=== PATIENT | female | born 1970 | race Hispanic/Latino ===

== ENCOUNTER 2024-08-25 02:47 | Inpatient (IN) | payer SELFPAY ==
--- OUTSIDE RECORDS SUMMARY | 2024-08-25 02:52 | XMS REPORT | Continuity of Care Document ---
Author Name Unknown Address [address] [facility] [address] [place] [address] Organization [facility] [place] Address [address] [facility] [address] [place] [address] Care Team Providers Care Level Vial Inspector And Tester Name Role Phone Mackenzie Velarde Primary Care Physician [phone] Doctor Unassigned, Bylas Attending Clinician U navailable Mackenzie Velarde Attending Clinician ROBBI KOTHARI Attending Clinician Unavailenmanuel e ROBBI KOTHARI Attending Clinician Unavailabl e Doctor Unassigned, Bylas Attending Clinician U navailable RADIOLOGY Attending Clinician Unavailable Radiology Attending Clinician Unavailable Kevin Enrique Attending Clinician Unavailab Jeremy Ugalde Attending Clinician Unavaila parrish [facility] Admitting Clinicia n Unavailable MACKENZIE VELARDE Admitting Clinician Unavai lable Payers Payer Name Policy Type Policy Number Effective Date Expirati on Date Source Allergies, Adverse Reactions, Alerts Allergy Name Allergy Type Status Severity Reaction(s) Onset Date Inactive Date Treating Clinician Comments Source No Known Allergie s DA Active U 2013-05 00:00: 00 [facility] NO KNOWN ALLERGIE S Drug Class Active [facility] Social History Social Habit Start Date Stop Date Quantity Comments Source Sexual orientation U [facility] Sex assigned at 1970 00:00:00 1970 00:00:00 [facility] Smoking Status Start Date Stop Date Source Tobacco smoking consumption unknown [facility] Medications Ordered Medication Name Filled Medication Name Start Date Stop Date Current Medication? Ordering Clinician Indication Dosage Frequency Signature (SIG) Comments Components Source losartan 100 mg-hydrochl orothiazide 25 mg tablet - 00:00: 00 Yes mg Lucio Rodriguez metformin 1,000 mg tablet -24 00:00: 00 Yes mg Lucio Rodriguez duloxetine 30 mg capsule,del ayed release 06-01 00:00: 00 Yes 1mg Lucio Rodriguez losartan 100 mg-hydrochl orothiazide 25 mg tablet 2023-05 2-20 00:00: 00 Yes mg Lucio Rodriguez metformin 1,000 mg tablet 2023-05 2-20 00:00: 00 Yes mg Lucio Rodriguez diclofenac 1 % topical gel 2023-05 2- 00:00: 00 Yes 2% Lucio Rodriguez meloxicam 7.5 mg tablet 2023-05 2- 00:00: 00 Yes 1mg Lucio Rodriguez losartan 100 mg-hydrochl orothiazide 25 mg tablet 2023-05 1-15 00:00: 00 Yes mg Lucio Rodriguez metformin 1,000 mg tablet 2023-05 1-13 00:00: 00 Yes mg Lucio Rodriguez metformin 1,000 mg tablet 2023-05 0-08 00:00: 00 Yes mg Lucio Rodriguez Bromfed DM 2 mg-30 mg-10 mg/5 mL oral syrup - 00:00: 00 Yes 20mg/5 mL Lucio Rodriguez Victoza 3-Binu 0.6 mg/0.1 mL (18 mg/3 mL) subcutaneou s pen injector - 00:00: 00 Yes 1(18 mg/3 mL) Lucio Rodriguez Victoza 3-Binu 0.6 mg/0.1 mL (18 mg/3 mL) subcutaneou s pen injector 12-25 00:00: 00 Yes (18 mg/3 mL) Lucio Rodriguez Celebrex 200 mg capsule 12-25 00:00: 00 Yes 1mg Lucio Rodriguez metformin 1,000 mg tablet 11-01 00:00: 00 Yes mg Lucio Rodriguez losartan 100 mg-hydrochl orothiazide 25 mg tablet 10-09 00:00: 00 Yes mg Lucio Rodriguez Victoza 3-Binu 0.6 mg/0.1 mL (18 mg/3 mL) subcutaneou s pen injector 10-09 00:00: 00 Yes (18 mg/3 mL) Lucio Rodriguez methylpredn isolone 4 mg tablets in a dose pack 09-05 00:00: 00 Yes mg Lucio Rodriguez losartan 100 mg-hydrochl orothiazide 25 mg tablet 09-05 00:00: 00 Yes mg Lucio Rodriguez Bromfed DM 2 mg-30 mg-10 mg/5 mL oral syrup 08-10 00:00: 00 Yes 5mg/5 mL Lucio Rodriguez losartan 100 mg-hydrochl orothiazide 25 mg tablet 08-02 00:00: 00 Yes mg Lucio Rodriguez metformin 1,000 mg tablet 07-06 00:00: 00 Yes mg Lucio Rodriguez TAKE 1 TABLET TWICE DAILY NEEDED. 06-01 00:00: 00 09-20 00:00 :00 No 75 Lucio Rodriguez TAKE DAILY DIRECTED 06-01 00:00: 00 09-20 00:00 :00 No 4 Lucio Rodriguez methocarbam ol 750 mg tablet 06-01 00:00: 00 09-05 00:00 :00 No 750mg Lucio Rodriguez INJECT 0.25 WEEKLY 2022-05 00:00: 00 09-20 00:00 :00 No 23 Lucio Rodriguez 0.6 MG ONCE DAILY FOR 1 WEEK, THEN INCREASE TO 1.2 MG ONCE DAILY 2022-05 00:00: 00 09-20 00:00 :00 No 183 Lucio Rodriguez TAKE ONE TABLET TWICE A DAY 2022-05 00:00: 00 09-20 00:00 :00 No 1 Lucio Rodriguez TAKE ONE (1) TABLET(S) BY MOUTH TWICE A DAY. 2022-05 2-13 00:00: 00 09-20 00:00 :00 No 1000 Lucio Rodriguez INJECT 0.5 ML SUBCUTANEOU SLY WEEKLY. 2022-05 0-04 00:00: 00 09-20 00:00 :00 No [id number] Lucio Rodriguez TAKE ONE (1) TABLET(S) BY MOUTH TWICE A DAY. 2022-05 0-03 00:00: 00 09-20 00:00 :00 No 1000 Lucio Rodriguez TAKE ONE (1) TABLET(S) BY MOUTH DAILY. 2022-05 0-03 00:00: 00 09-20 00:00 :00 No Lucio Rodriguez TAKE ONE (1) TABLET(S) BY MOUTH TWICE A DAY. 9-29 00:00: 00 09-20 00:00 :00 No 1000 Lucio Rodriguez TAKE ONE (1) TABLET(S) BY MOUTH DAILY. 9- 00:00: 00 09-20 00:00 :00 [place] [id number] Lucio Rodriguez TAKE 1 TABLET DAILY. 8-02 00:00: 00 09-20 00:00 :00 [place] [id number] Lucio Rodriguez TAKE ONE (1) TABLET(S) BY MOUTH TWICE A DAY. 6-14 00:00: 00 09-20 00:00 :00 No 1000 Lucio Rodriguez TAKE ONE TABLET TWICE A DAY 6-14 00:00: 00 09-20 00:00 :00 No 1 Lucio Rich Michael BROMPHEN/PS EUDOEPHEDRI NE HCL/DEXTRO METHORPHAN HBR 30-2-10 MG/5ML SYRP 5-12 00:00: 00 09-20 00:00 :00 No Lucio Rich Michael take one tab once daily - 00:00: 00 09-20 00:00 :00 No 25 Lucio Rich Rodriguez take one tab once daily 09-08 00:00: 00 09-20 00:00 :00 No 100 Lucio Rich Rodriguez TAKE 1 TABLET DAILY. 2023-0 5-03 00:00: 00 09-20 00:00 :00 [place] [id number] Lucio Rodriguez TAKE ONE (1) TABLET(S) BY MOUTH TWICE A DAY. 4-27 00:00: 00 09-20 00:00 :00 No 1000 Lucio Rodriguez TAKE ONE (1) TABLET(S) BY MOUTH TWICE A DAY. 3-29 00:00: 00 09-20 00:00 :00 No 1000 Lucio Rodriguez TAKE ONE TABLET TWICE A DAY 3-03 00:00: 00 09-20 00:00 :00 No 1 Lucio Rodriguez TAKE 1 TABLET AT BEDTIME. 3- 00:00: 00 09-20 00:00 :00 No 40 Lucio Rodriguez TAKE 1 TABLET TWICE DAILY. 3- 00:00: 00 09-20 00:00 :00 No 1000 Lucio Rich Rodriguez 1 tablet bid 3- 00:00: 00 09-20 00:00 :00 No 1000 Lucio Rich Rodriguez APPLY TO AFFECTED AREAS DIRECTED. 3- 00:00: 00 09-20 00:00 :00 No 5 Lucio Rodriguez TAKE 1 TABLET BID NEEDED 2-02 00:00: 00 09-20 00:00 :00 No 600 Ulcio Rich Rodriguez TAKE 2 TABLETS ON DAY 1 THEN TAKE 1 TABLET A DAY FOR 4 DAYS. 1- 00:00: 00 09-20 00:00 :00 No 250 Lucio Rodriguez TAKE 1 CAPSULE 3 TIMES DAILY NEEDED. 1-23 00:00: 00 09-20 00:00 :00 No 100 Lucio Rich Michael IBUPROFEN 800 MG TABS 1- 00:00: 00 09-20 00:00 :00 No Lucio Rich Michael TAKE ONE (1) TABLET(S) BY MOUTH EVERY TWELVE HOURS NEEDED FOR MUSCLE SPASMS. 1- 00:00: 00 09-20 00:00 :00 Sushila Rodriguez INHALE TWO (2) PUFFS BY MOUTH EVERY 4-6 HOURSAS NEEDED FOR COUGH, WHEEZING OR SHORTNESS OF BREATH. WAIT AT LEAST 60 SECONDS BETWEEN PUFFS. 05-15 00:00: 00 09-20 00:00 :00 Sushila Rodriguez PREDNISONE 20 MG TABS 05-15 00:00: 00 09-20 00:00 :00 Sushila Rodriguez INHALE TWO (2) PUFFS BY MOUTH EVERY 12 HOURS. 05-15 00:00: 00 09-20 00:00 :00 Sushila Rodriguez TAKE ONE (1) TABLET(S) BY MOUTH ONCE A DAY FOR 30 DAYS. 05-09 00:00: 00 09-20 00:00 :00 Sushila 5 Lucio Rodriguez TAKE ONE (1) TABLET(S) BY MOUTH ONCE A DAY FOR 30 DAYS. 2021-05 00:00: 00 09-20 00:00 :00 Sushila Rodriguez LOSARTAN POTASSIUM 100 MG TABS 2021-05 00:00: 00 09-20 00:00 :00 Sushila Rodriguez HYDROCHLORO THIAZIDE 25 MG TABS 2021-05 00:00: 00 09-20 00:00 :00 Sushila Rodriguez METFORMIN HYDROCHLORI DE 500 MG TABS 2021-05 00:00: 00 09-20 00:00 :00 Sushila Rodriguez TAKE TWO (2) TABLET(S) BY MOUTH TWICE A DAY. 2021-05 00:00: 00 09-20 00:00 :00 Sushila Rodriguez OMEPRAZOLE 20 MG CPDR 01-28 00:00: 00 09-20 00:00 :00 Sushila Rodriguez 1 po qd 01-20 00:00: 00 09-20 00:00 :00 Sushila Rodriguez TAKE 4 CAPSULES TWICE DAILY. 01-20 00:00: 00 09-20 00:00 :00 Sushila Rodriguez 2 po bid 01-20 00:00: 00 09-20 00:00 :00 No 500 Lucio Rodriguez DICLOFENAC SODIUM 1 % GEL 8-11 00:00: 00 09-20 00:00 :00 No Lucio Rich Rodriguez METOCLOPRAM JAMIE HCL 5 MG TABS 12-02 00:00: 00 09-20 00:00 :00 No Lucio Rich Rodriguez RYBELSUS 3 MG TABS 12-02 00:00: 00 09-20 00:00 :00 Sushila Lucio Rich Rodriguez TAKE ONE (1) TABLET(S) BY MOUTH TWICE A DAY FOR SEVEN DAYS. 12-02 00:00: 00 09-20 00:00 :00 No Lucio Rich Rodriguez CIPROFLOXAC IN HYDROCHLORI DE 250 MG TABS 07-18 00:00: 00 09-20 00:00 :00 No Lucio Rich Michael APPLY TO LEFT GREAT TOE TWICE A DAY. 3 00:00: 00 09-20 00:00 :00 No Lucio Rich Michael Vital Signs Vital Name Observation Time Observation Value Comments S chip BP Systolic 2024-06-01 13:29:00 138 mm[Hg] Step hen F Michael BP Diastolic 2024-06-01 13:29:00 88 mm[Hg] Jeronimo phen F Michael Weight Measured 2024-06-01 13:29:00 183.20 pounds Lucio Rodriguez Height Measured 2024-06-01 13:29:00 65.20 inches Lucio Rodriguez Body Temperature 2024-06-01 13:29:00 97.30 degrees Lucio Rodriguez Heart Rate 2024-06-01 13:29:00 86.00 /min Mary en F Michael Respiratory Rate 2024-06-01 13:29:00 18.00 /min Lucio Rodriguez BP Systolic 2024-04-10 09:48:00 163 mm[Hg] Step hen F Michael BP Diastolic 2024-04-10 09:48:00 98 mm[Hg] Jeronimo phen F Michael Weight Measured 2024-04-10 09:48:00 180.20 pounds Lucio Rodriguez Height Measured 2024-04-10 09:48:00 65.00 inches Lucio Rodriguez Body Temperature 2024-04-10 09:48:00 Lucio F Michael Heart Rate 2024-04-10 09:48:00 84.00 /min Mary en F Michael Respiratory Rate 2024-04-10 09:48:00 16.00 /min Lucio F Michael BP Systolic 2024-01-04 08:57:00 166 mm[Hg] Step hen F Michael BP Diastolic 2024-01-04 08:57:00 92 mm[Hg] Jeronimo phen F Michael Weight Measured 2024-01-04 08:57:00 183.00 pounds Lucio F Michael Height Measured 2024-01-04 08:57:00 65.00 inches Lucio F Michael Body Temperature 2024-01-04 08:57:00 98.20 degrees Lucio F Michael Heart Rate 2024-01-04 08:57:00 100.00 /min Step hen F Michael Respiratory Rate 2024-01-04 08:57:00 18.00 /min Lucio F Michael BP Systolic 2023-12-26 09:40:00 146 mm[Hg] Step hen F Michael BP Diastolic 2023-12-26 09:40:00 93 mm[Hg] Jeronimo phen F Mihcael Weight Measured 2023-12-26 09:40:00 185.60 pounds Lucio F Michael Height Measured 2023-12-26 09:40:00 65.00 inches Lucio F Michael Body Temperature 2023-12-26 09:40:00 97.90 degrees Lucio F Michael Heart Rate 2023-12-26 09:40:00 83.00 /min Mary en F Michael Respiratory Rate 2023-12-26 09:40:00 17.00 /min Lucio F Micahel BP Systolic 2023-10-10 15:09:00 141 mm[Hg] Step hen F Michael BP Diastolic 2023-10-10 15:09:00 93 mm[Hg] Jeronimo phen F Michael Weight Measured 2023-10-10 15:09:00 189.80 pounds Lucio F Michael Height Measured 2023-10-10 15:09:00 65.00 inches Lucio F Michael Body Temperature 2023-10-10 15:09:00 98.20 degrees Lucio F Michael Heart Rate 2023-10-10 15:09:00 98.00 /min Mary en F Michael Respiratory Rate 2023-10-10 15:09:00 18.00 /min Lucio F Michael BP Systolic 2023-09-06 09:53:00 137 mm[Hg] Step hen F Michael BP Diastolic 2023-09-06 09:53:00 83 mm[Hg] Jeronimo phen F Michael Weight Measured 2023-09-06 09:53:00 186.40 pounds Lucio F Michael Height Measured 2023-09-06 09:53:00 65.00 inches Lucio F Michael Body Temperature 2023-09-06 09:53:00 98.00 degrees Lucio F Michael Heart Rate 2023-09-06 09:53:00 81.00 /min Mary en F Michael Respiratory Rate 2023-09-06 09:53:00 19.00 /min Lucio F Michael BP Systolic 2023-08-11 09:05:00 138 mm[Hg] Step hen F Michael BP Diastolic 2023-08-11 09:05:00 91 mm[Hg] Jeronimo phen F Michael Weight Measured 2023-08-11 09:05:00 182.80 pounds Lucio F Michael Height Measured 2023-08-11 09:05:00 65.00 inches Lucio F Michael Body Temperature 2023-08-11 09:05:00 98.30 degrees Lucio F Michael Heart Rate 2023-08-11 09:05:00 98.00 /min Mary en F Michael Respiratory Rate 2023-08-11 09:05:00 18.00 /min Lucio F Michael BP Systolic 2023-06-22 10:23:00 161 mm[Hg] Step hen F Michael BP Diastolic 2023-06-22 10:23:00 96 mm[Hg] Jeronimo phen F Michael Weight Measured 2023-06-22 10:23:00 186.20 pounds Lucio F Michael Height Measured 2023-06-22 10:23:00 65.00 inches Lucio F Michael Body Temperature 2023-06-22 10:23:00 98.00 degrees Lucio F Michael Heart Rate 2023-06-22 10:23:00 80.00 /min Mary en F Michael Respiratory Rate 2023-06-22 10:23:00 17.00 /min Lucio F Michael BP Systolic 2023-06-22 09:48:00 161 mm[Hg] Step hen F Michael BP Diastolic 2023-06-22 09:48:00 96 mm[Hg] Jeronimo phen F Michael Weight Measured 2023-06-22 09:48:00 186.20 pounds Lucio F Michael Height Measured 2023-06-22 09:48:00 65.00 inches Lucio F Michael Body Temperature 2023-06-22 09:48:00 98.00 degrees Lucio F Michael Heart Rate 2023-06-22 09:48:00 80.00 /min Mary en F Michael Respiratory Rate 2023-06-22 09:48:00 17.00 /min Lucio F Michael BP Systolic 2023-06-07 15:42:00 124 mm[Hg] Step hen F Michael BP Diastolic 2023-06-07 15:42:00 87 mm[Hg] Jeronimo phen F Michael Weight Measured 2023-06-07 15:42:00 189.80 pounds Lucio F Michael Height Measured 2023-06-07 15:42:00 65.00 inches Lucio F Michael Body Temperature 2023-06-07 15:42:00 98.20 degrees Lucio F Michael Heart Rate 2023-06-07 15:42:00 81.00 /min Mary en F Michael Respiratory Rate 2023-06-07 15:42:00 19.00 /min Lucio F Michael BP Systolic 2023-06-01 15:44:00 132 mm[Hg] Step hen F Michael BP Diastolic 2023-06-01 15:44:00 89 mm[Hg] Jeronimo phen F Michael Weight Measured 2023-06-01 15:44:00 189.40 pounds Lucio F Michael Height Measured 2023-06-01 15:44:00 65.00 inches Lucio F Michael Body Temperature 2023-06-01 15:44:00 98.10 degrees Lucio F Michael Heart Rate 2023-06-01 15:44:00 77.00 /min Mary en F Michael Respiratory Rate 2023-06-01 15:44:00 17.00 /min Lucoi F Michael BP Systolic 2023-04-21 15:33:00 138 mm[Hg] Step hen F Michael BP Diastolic 2023-04-21 15:33:00 89 mm[Hg] Jeronimo phen F Michael Weight Measured 2023-04-21 15:33:00 186.60 pounds Lucio F Michael Height Measured 2023-04-21 15:33:00 65.00 inches Lucio F Michael Body Temperature 2023-04-21 15:33:00 98.20 degrees Lucio F Michael Heart Rate 2023-04-21 15:33:00 93.00 /min Mary en F Michael Respiratory Rate 2023-04-21 15:33:00 19.00 /min Lucio F Michael BP Systolic 2023-04-20 14:13:00 150 mm[Hg] Step hen F Michael BP Diastolic 2023-04-20 14:13:00 89 mm[Hg] Jeronimo phen F Michael Weight Measured 2023-04-20 14:13:00 187.60 pounds Lucio F Michael Height Measured 2023-04-20 14:13:00 65.00 inches Lucio F Michael Body Temperature 2023-04-20 14:13:00 98.20 degrees Lucio F Michael Heart Rate 2023-04-20 14:13:00 86.00 /min Mary en F Michael Respiratory Rate 2023-04-20 14:13:00 19.00 /min Lucio F Michael BP Systolic 2023-02-08 15:03:00 139 mm[Hg] Step hen F Michael BP Diastolic 2023-02-08 15:03:00 89 mm[Hg] Jeronimo phen F Michael Weight Measured 2023-02-08 15:03:00 192.40 pounds Lucio F Michael Height Measured 2023-02-08 15:03:00 65.00 inches Lucio F Michael Body Temperature 2023-02-08 15:03:00 98.30 degrees Lucio F Michael Heart Rate 2023-02-08 15:03:00 93.00 /min Mary en F Michael Respiratory Rate 2023-02-08 15:03:00 19.00 /min Lucio F Michael BP Systolic 2022-12-13 14:47:00 159 mm[Hg] Step hen F Michael BP Diastolic 2022-12-13 14:47:00 100 mm[Hg] Jeronimo phen F Michael Weight Measured 2022-12-13 14:47:00 197.60 pounds Lucio F Michael Height Measured 2022-12-13 14:47:00 65.00 inches Lucio F Michael Body Temperature 2022-12-13 14:47:00 98.20 degrees Lucio Rodriguez Heart Rate 2022-12-13 14:47:00 83.00 /min Mary Rodriguez Respiratory Rate 2022-12-13 14:47:00 19.00 /min Lucio Rodriguez Procedures Procedure Date / Time Performed Performing Clinicia n Source REFERRAL- REQUEST/RESPONSE 2023-09-06 23:22:15 Doctor Unassigned, Bylas [facility] REFERRAL- REQUEST/RESPONSE 2023-06-22 06:01:00 Doctor Unassigned, Bylas [facility] XR SHOULDER 2+ VW RIGHT 2023-06-02 19:45:30 Mackenzie Velarde [facility] ASSIGNMENT OF BENEFITS 2023-06-02 19:19:30 Docto r Unassigned, Bylas [facility] Encounters Start Date/Time End Date/Time Encounter Type Admission Type Attending [facility] Facility Care Department Encounter ID Source 2019-05-19 18:07:00 Inpatient [facility] [id number] [facility] 2023-09-06 00:00:00 2024-06-23 02:08:59 Orders Only Doctor Unassigned, Bylas Doctor Unassigned, Bylas [facility]) [id number] [facility] 2024-06-05 08:34:33 2024-06-05 08:34:[address] [facility] [id number] Lucio Rodriguez 2024-06-01 13:18:05 2024-06-01 13:18:[address] [facility] [id number] Lucio Rodriguez 2024-06-01 00:00:00 2024-06-01 00:00:[address] [facility] [id number] Lucio Rodriguez 2024-04-10 09:43:44 2024-04-10 09:43:[address] [facility] [id number] Lucio Rodriguez 2024-04-10 00:00:00 2024-04-10 00:00:00 Outpatient Visit S[facility] [id number] Lucio Rodriguez 2024-01-04 08:49:04 2024-01-04 08:49:04 Outpatient SFA [facility] [id number] Lucio Rodriguez 2024-01-04 00:00:00 2024-01-04 00:00:00 Outpatient Visit [facility] [id number] Lucio Rodriguez 2023-12-26 09:06:06 2023-12-26 09:06:06 Outpatient SFA SFA [id number] Lucio Rodriguez 2023-12-26 00:00:00 2023-12-26 00:00:00 Outpatient Visit SFA [id number] Lucio Rodriguez 2023-10-10 14:58:49 2023-10-10 14:58:49 Outpatient SFA SFA [id number] Lucio Rodriguez 2023-10-10 00:00:00 2023-10-10 00:00:00 Outpatient Visit SFA [id number] Lucio Rodriguez 2023-09-22 00:00:00 2023-09-22 13:53:42 Letter (Out) Janie collins [facility] [id number] [facility] 2023-09-22 09:00:00 2023-09-22 09:00:00 Outpatient ROBBI KATHLEEN [facility] [id number] [facility] 2023-09-06 09:47:40 2023-09-06 09:47:40 Outpatient SFA SFA [id number] Lucio Rodriguez 2023-09-06 00:00:00 2023-09-06 00:00:[address] [facility] [id number] Lucio Rodriguez 2023-08-11 08:57:05 2023-08-11 08:57:[address] [facility] [id number] Lucio Rodriguez 2023-07-15 09:30:00 2023-07-15 09:30:00 Outpatient R ROBBI KOTHARI [facility] [id number] [facility] 2023-06-22 09:43:10 2023-06-22 09:43:[address] [facility] [id number] Lucio Rodriguez 2023-06-22 00:00:00 2023-06-22 00:00:00 Orders Only Doctor Unassigned, Bylas [facility] [id number] [id number] [id number] [facility] 2023-06-07 15:36:39 2023-06-07 15:36:39 Outpatient [facility] [id number] Lucio Rodriguez 2023-06-02 13:27:57 2023-06-02 23:59:[address] [facility] [id number] [facility] 2023-06-02 13:15:00 2023-06-02 23:59:00 Hospital Encounter Radiology [facility] [id number] [id number] [id number] [facility] 2023-06-02 00:00:00 2023-06-02 00:00:00 Orders Only Doctor Unassigned, Bylas [facility] [id number] [id number] [id number] [facility] 2023-06-01 15:36:22 2023-06-01 15:36:22 Outpatient [facility] [place] [id number] Lucio Rodriguez 2023-04-21 14:58:20 2023-04-21 14:58:20 Outpatient SFA [facility] [id number] Lucio Rodriguez 2023-04-20 14:02:38 2023-04-20 14:02:38 Outpatient SFA [facility] [id number] Lucio Rodriguez 2023-02-08 14:49:59 2023-02-08 14:49:59 Outpatient SFA SFA [id number] Lucio Rodriguez 2022-12-13 14:21:39 2022-12-13 14:21:39 Outpatient SFA SFA [id number] Lucio Rodriguez 2022-10-20 16:55:21 2022-10-20 16:55:21 Outpatient SFA SFA [id number] Lucio Rodriguez 2022-09-08 14:57:08 2022-09-08 14:57:08 Outpatient SFA SFA [id number] Lucio Rodriguez 2022-08-26 10:39:47 2022-08-26 10:39:47 Outpatient SFA SFA [id number] Lucio Rodriguez 2022-07-07 16:12:42 2022-07-07 16:12:42 Outpatient SFA SFA [id number] Lucio Rodriguez 2022-06-10 17:26:57 2022-06-10 17:26:57 Outpatient SFA SFA [id number] Lucio Rodriguez 2022-05-31 10:09:25 2022-05-31 10:09:25 Outpatient SFA SFA Lucio Villanueva Michael 2022-05-19 14:02:37 2022-05-19 14:02:37 Outpatient SFA SFA Lucio Villanueva Michael 2022-05-04 15:48:22 2022-05-04 15:48:22 Outpatient SFA SFA Lucio Rodriguez 2022-03-17 15:15:58 2022-03-17 15:15:58 Outpatient SFA SFA Lucio Rodriguez 2020-10-30 08:36:00 2020-10-30 08:36:00 Outpatient Kevin Enrique [facility] [id number] [facility] 2020-10-17 08:45:00 2020-10-17 08:45:00 Outpatient Jeremy Alcaraz [id number] [facility] Results Test Description Test Time Test Comments Results Result Co mments Source LIPID [id number] 05:12:35* Test Item Value Reference Range Interpretation Comme nts CHOLESTEROL (test code = 2210) 215 MG/DL <200 H TRIGLYCERIDES (test code = 2232) 229 MG/DL <150 H HDL CHOLESTEROL (test code = 2220) 45 MG/DL >39 CALC LDL CHOL (test code = 2237) 133 MG/DL <100 H NOTE: CALCULATED LDL IS BASED ON KAMRAN-CHADWICK METHOD WHICHINCLUDES ADJUSTABLE TRIGLYCERIDE:VLDL CHOLESTEROL RATIO.THIS FACTOR VARIES BY MEASURED TRIGLYCERIDE AND NON-HDLCHOLESTEROL CONCENTRATIONS WITH INCREASED CALCULATED LDL SEENIN HIGHER TRIGLYCERIDE OR LOWER NON-HDL SPECIMENS. FOR MOREINFORMATION, SEE CLIENT ANNOUNCEMENT AT [email or web address] RISK RATIO LDL/HDL (test code = 2238) 2.96 RATIO <3.22 HEMOGLOBIN [id number] 04:44:19* Test Item Value Reference Range Interpretation Comme nts HEMOGLOBIN A1c (test code = 52099) 10.7 % 4.2-5.6 H [employer] GUIDELINES FOR HGB A1C: PREDIABETES/INCREASED RISK . . . . . . . 5.7-6.4% DIAGNOSIS OF DIABETES . . . . . . . . . >=6.5% WITH CONFIRMATION OR APPROPRIATE SYMPTOMS NOTE: ASSAY MAY BE AFFECTED BY HEMOGLOBINOPATHIES (SICKLE CELL ANEMIA, S-C DISEASE, OTHERS) OR ARTIFICIALLY LOWERED BY DECREASED RED CELL SURVIVAL (HEMOLYTIC ANEMIAS, BLOOD LOSS, ETC.). CONSIDER ALTERNATE TESTING OR LABORATORY CONSULTATION. UNLESS OTHERWISE INDICATED, ALL TESTING PERFORMED AT [facility] [address] [place] [id number] SKATE MAKER: Olivia SEGOVIAIA NUMBER [id number] [facility] [place]. [id number] REFERRAL- REQUEST/[id number] 23:22:15Ordered by an unspecified provider. [facility] [id number] 19:50:04 HISTORY: ?Pain. FINDINGS: 2 frontal projection views of right shoulder obtained with thearm in internal and external rotation positions showed no acute fracture ordislocation. Mild AC joint degenerative arthrosis noted. Very smallcalcification suspected in the upper infraspinatus tendon. No aggressi vebone lesions seen. CONCLUSIONS: No acute fracture or dislocation in right shoulder.[facility] [id number] 05:30:11* Test Item Value Reference Range Interpretation Comme [facility] HEMOGLOBIN A1c (test code = 78445) 8.7 % 4.2-5.6 H [employer] GUIDELINES FOR HGB A1C: PREDIABETES/INCREASED RISK . . . . . . . 5.7-6.4% DIAGNOSIS OF DIABETES . . . . . . . . . >=6.5% WITH CONFIRMATION OR APPROPRIATE SYMPTOMS NOTE: ASSAY MAY BE AFFECTED BY HEMOGLOBINOPATHIES (SICKLE CELL ANEMIA, S-C DISEASE, OTHERS) OR ARTIFICIALLY LOWERED BY DECREASED RED CELL SURVIVAL (HEMOLYTIC ANEMIAS, BLOOD LOSS, ETC.). CONSIDER ALTERNATE TESTING OR LABORATORY CONSULTATION. UNLESS OTHERWISE INDICATED, ALL TESTING PERFORMED AT [facility] [address] [place] [address] SKATE MAKER: EDITA HAYNES M.D. [place] NUMBER [id number] [facility] [place]. [id number] HEMOGLOBIN [id number] 00:00:00* Test Item Value Reference Range Interpretation Comme [facility] HEMOGLOBIN A1c (test code = 59712) 8.7 % Lucio F AustinHEMOGLOBIN [id number] 00:00:00* Test Item Value Reference Range Interpretation Comme [facility] HEMOGLOBIN A1c (test code = 54549) 8.7 % Lucio AustinHEMOGLOBIN [id number] 00:00:00* Test Item Value Reference Range Interpretation Comme nts HEMOGLOBIN A1c (test code = 59229) 8.7 % Lucio F AustinHEMOGLOBIN [id number] 00:00:00* Test Item Value Reference Range Interpretation Comme nts HEMOGLOBIN A1c (test code = 22013) 8.7 % Lucio F AustinHEMOGLOBIN [id number] 00:00:00* Test Item Value Reference Range Interpretation Comme nts HEMOGLOBIN A1c (test code = 94674) 8.7 % Lucio F AustinHEMOGLOBIN [id number] 00:00:00* Test Item Value Reference Range Interpretation Comme nts HEMOGLOBIN A1c (test code = 56969) 8.7 % Lucio RodriguezALBUMIN/CREATININE RATIO, URINE, [id number] 06:16:48* Test Item Value Reference Range Interpretation Comme nts CREATININE, URINE, CONC. (test code = 2072) 120.8 MG/DL NOT ESTAB ALBUMIN, URINE, RANDOM (test code = 91127) 0.7 MG/DL NOT ESTAB CALC ALBUMIN/CREAT, RND (test code = 48589) 6 MG/G <30 Note: Albumin/Creatinine ratio reference interval reflects ADA and NKF guidelines. HEMOGLOBIN [id number] 05:54:29* Test Item Value Reference Range Interpretation Comme [facility] HEMOGLOBIN A1c (test code = 49876) 8.1 % 4.2-5.6 H [employer] GUIDELINES FOR HGB A1C: PREDIABETES/INCREASED RISK . . . . . . . 5.7-6.4% DIAGNOSIS OF DIABETES . . . . . . . . . >=6.5% WITH CONFIRMATION OR APPROPRIATE SYMPTOMS NOTE: ASSAY MAY BE AFFECTED BY HEMOGLOBINOPATHIES (SICKLE CELL ANEMIA, S-C DISEASE, OTHERS) OR ARTIFICIALLY LOWERED BY DECREASED RED CELL SURVIVAL (HEMOLYTIC ANEMIAS, BLOOD LOSS, ETC.). CONSIDER ALTERNATE TESTING OR LABORATORY CONSULTATION. COMPREHENSIVE METABOLIC [id number] 04:21:30* Test Item Value Reference Range Interpretation Comme nts GLUCOSE (test code = 2217) 314 MG/DL 70-99 H BUN (test code = 2208) 17 MG/DL 6-20 CREATININE (test code = 2214) 0.71 MG/DL 0.60-1.30 eGFR (2020 CKD-EPI) (test code = 56255) 103 ML/MIN/1.73 >60 CALC BUN/CREAT (test code = 2235) 24 RATIO 6-28 SODIUM (test code = 223) 137 MEQ/L 133-146 POTASSIUM (test code = 2228) 3.4 MEQ/L 3.5-5.4 L CHLORIDE (test code = 2215) 100 MEQ/L 95-107 CARBON DIOXIDE (test code = 2206) 26 MEQ/L 19-31 CALCIUM (test code = 220) 9.5 MG/DL 8.5-10.5 PROTEIN, TOTAL (test code = 222) 6.3 G/DL 6.1-8.3 ALBUMIN (test code = 220) 4.4 G/DL 3.5-5.2 CALC GLOBULIN (test code = 2240) 1.9 G/DL 1.9-3.7 CALC A/G RATIO (test code = 2234) 2.3 RATIO 1.0-2.6 BILIRUBIN, TOTAL (test code = 2207) 0.3 MG/DL <=1.2 ALKALINE PHOSPHATASE (test code = 2204) 96 U/L 40-130 AST (test code = 2218) 14 U/L 9-40 ALT (test code = 2219) 21 U/L 5-40 UNLESS OTHERWISE INDICATED, ALL TESTING PERFORMED AT [facility] [address] [place] [id number] [employer]: EDITA HAYNES M.D. CLIA NUMBER [id number] [facility] [place]. [id number] HEMOGLOBIN [id number] 00:00:00* Test Item Value Reference Range Interpretation Comme [facility] HEMOGLOBIN A1c (test code = 36718) 8.1 % Lucio RodriguezALBUMIN/CREATININE RATIO, RANDOM [id number] 00:00:00* Test Item Value Reference Range Interpretation Comme [facility] CREATININE, URINE, CONC. (te st code = 2072) 120.8 MG/DL ALBUMIN, URINE, RANDOM (test code = 33104) 0.7 MG/DL CALC ALBUMIN/CREAT, RND (srinivasan t code = 13900) 6 MG/G Lucio RodriguezCOMPREHENSIVE METABOLIC [id number] 00:00:00* Test Item Value Reference Range Interpretation Comme nts GLUCOSE (test code = 7) 314 MG/DL BUN (test code = 8) 17 MG/DL CREATININE (test code = 2214) 0.71 MG/DL eGFR (2020 CKD-EPI) (test code = 39176) 103 ML/MIN/1.73 CALC BUN/CREAT (test code = 2235) 24 RATIO SODIUM (test code = 2231) 137 MEQ/L POTASSIUM (test code = 2228) 3.4 MEQ/L CHLORIDE (test code = 2215) 100 MEQ/L CARBON DIOXIDE (test code = 2206) 26 MEQ/L CALCIUM (test code = 2209) 9.5 MG/DL PROTEIN, TOTAL (test code = 2229) 6.3 G/DL ALBUMIN (test code = 2201) 4.4 G/DL CALC GLOBULIN (test code = 2240) 1.9 G/DL CALC A/G RATIO (test code = 2234) 2.3 RATIO BILIRUBIN, TOTAL (test code = 2207) 0.3 MG/DL ALKALINE PHOSPHATASE (test code = 2204) 96 U/L AST (test code = 2218) 14 U/L ALT (test code = 2219) 21 U/L Lucio RodriguezHEMOGLOBIN [id number] 00:00:00* Test Item Value Reference Range Interpretation Comme [facility] HEMOGLOBIN A1c (test code = 24771) 8.1 % Lucio Villanueva AustinALBUMIN/CREATININE RATIO, RANDOM [id number] 00:00:00* Test Item Value Reference Range Interpretation Comme [facility] CREATININE, URINE, CONC. (te st code = 2072) 120.8 MG/DL ALBUMIN, URINE, RANDOM (test code = 23255) 0.7 MG/DL CALC ALBUMIN/CREAT, RND (srinivasan t code = 72749) 6 MG/G Lucio RodriguezCOMPREHENSIVE METABOLIC [id number] 00:00:00* Test Item Value Reference Range Interpretation Comme [facility] GLUCOSE (test code = 7) 314 MG/DL BUN (test code = 2208) 17 MG/DL CREATININE (test code = 2214) 0.71 MG/DL eGFR (2020 CKD-EPI) (test code = 68061) 103 ML/MIN/1.73 CALC BUN/CREAT (test code = 2235) 24 RATIO SODIUM (test code = 2231) 137 MEQ/L POTASSIUM (test code = 2228) 3.4 MEQ/L CHLORIDE (test code = 2215) 100 MEQ/L CARBON DIOXIDE (test code = 2206) 26 MEQ/L CALCIUM (test code = 2209) 9.5 MG/DL PROTEIN, TOTAL (test code = 2229) 6.3 G/DL ALBUMIN (test code = 2201) 4.4 G/DL CALC GLOBULIN (test code = 2240) 1.9 G/DL CALC A/G RATIO (test code = 2234) 2.3 RATIO BILIRUBIN, TOTAL (test code = 2207) 0.3 MG/DL ALKALINE PHOSPHATASE (test code = 2204) 96 U/L AST (test code = 2218) 14 U/L ALT (test code = 2219) 21 U/L Lucio Villanueva AustinHEMOGLOBIN [id number] 00:00:00* Test Item Value Reference Range Interpretation Comme jennifer HEMOGLOBIN A1c (test code = 38704) 8.1 % Lucio Villanueva AustinALBUMIN/CREATININE RATIO, RANDOM [id number] 00:00:00* Test Item Value Reference Range Interpretation Comme nts CREATININE, URINE, CONC. (te st code = 2072) 120.8 MG/DL ALBUMIN, URINE, RANDOM (test code = 95471) 0.7 MG/DL CALC ALBUMIN/CREAT, RND (srinivasan t code = 87739) 6 MG/G Lucio RodriguezCOMPREHENSIVE METABOLIC [id number] 00:00:00* Test Item Value Reference Range Interpretation Comme nts GLUCOSE (test code = 2217) 314 MG/DL BUN (test code = 2208) 17 MG/DL CREATININE (test code = 2214) 0.71 MG/DL eGFR (2020 CKD-EPI) (test code = 50465) 103 ML/MIN/1.73 CALC BUN/CREAT (test code = 2235) 24 RATIO SODIUM (test code = 2231) 137 MEQ/L POTASSIUM (test code = 2228) 3.4 MEQ/L CHLORIDE (test code = 2215) 100 MEQ/L CARBON DIOXIDE (test code = 2206) 26 MEQ/L CALCIUM (test code = 2209) 9.5 MG/DL PROTEIN, TOTAL (test code = 2229) 6.3 G/DL ALBUMIN (test code = 2201) 4.4 G/DL CALC GLOBULIN (test code = 2240) 1.9 G/DL CALC A/G RATIO (test code = 2234) 2.3 RATIO BILIRUBIN, TOTAL (test code = 2207) 0.3 MG/DL ALKALINE PHOSPHATASE (test code = 2204) 96 U/L AST (test code = 2218) 14 U/L ALT (test code = 2219) 21 U/L Lucio Villanueva AustinHEMOGLOBIN [id number] 00:00:00* Test Item Value Reference Range Interpretation Comme jennifer HEMOGLOBIN A1c (test code = 78698) 8.1 % Lucio Villanueva AustinALBUMIN/CREATININE RATIO, RANDOM [id number] 00:00:00* Test Item Value Reference Range Interpretation Comme nts CREATININE, URINE, CONC. (te st code = 2071) 120.8 MG/DL ALBUMIN, URINE, RANDOM (test code = 04677) 0.7 MG/DL CALC ALBUMIN/CREAT, RND (srinivasan t code = 68812) 6 MG/G Lucio RodriguezCOMPREHENSIVE METABOLIC [id number] 00:00:00* Test Item Value Reference Range Interpretation Comme nts GLUCOSE (test code = 2217) 314 MG/DL BUN (test code = 2208) 17 MG/DL CREATININE (test code = 2214) 0.71 MG/DL eGFR (2020 CKD-EPI) (test code = 21854) 103 ML/MIN/1.73 CALC BUN/CREAT (test code = 2235) 24 RATIO SODIUM (test code = 2231) 137 MEQ/L POTASSIUM (test code = 2228) 3.4 MEQ/L CHLORIDE (test code = 2215) 100 MEQ/L CARBON DIOXIDE (test code = 2206) 26 MEQ/L CALCIUM (test code = 2209) 9.5 MG/DL PROTEIN, TOTAL (test code = 2229) 6.3 G/DL ALBUMIN (test code = 2201) 4.4 G/DL CALC GLOBULIN (test code = 2240) 1.9 G/DL CALC A/G RATIO (test code = 2234) 2.3 RATIO BILIRUBIN, TOTAL (test code = 2207) 0.3 MG/DL ALKALINE PHOSPHATASE (test code = 2204) 96 U/L AST (test code = 2218) 14 U/L ALT (test code = 2219) 21 U/L Lucio RodriguezHEMOGLOBIN [id number] 00:00:00* Test Item Value Reference Range Interpretation Comme nts HEMOGLOBIN A1c (test code = 45819) 8.1 % Lucio RodriguezALBUMIN/CREATININE RATIO, RANDOM [id number] 00:00:00* Test Item Value Reference Range Interpretation Comme nts CREATININE, URINE, CONC. (te st code = 2071) 120.8 MG/DL ALBUMIN, URINE, RANDOM (test code = 46932) 0.7 MG/DL CALC ALBUMIN/CREAT, RND (srinivasan t code = 75676) 6 MG/G Lucio RodriguezCOMPREHENSIVE METABOLIC [id number] 00:00:00* Test Item Value Reference Range Interpretation Comme nts GLUCOSE (test code = 2217) 314 MG/DL BUN (test code = 2208) 17 MG/DL CREATININE (test code = 2214) 0.71 MG/DL eGFR (2020 CKD-EPI) (test code = 78394) 103 ML/MIN/1.73 CALC BUN/CREAT (test code = 2235) 24 RATIO SODIUM (test code = 2231) 137 MEQ/L POTASSIUM (test code = 2228) 3.4 MEQ/L CHLORIDE (test code = 2215) 100 MEQ/L CARBON DIOXIDE (test code = 2206) 26 MEQ/L CALCIUM (test code = 2209) 9.5 MG/DL PROTEIN, TOTAL (test code = 2229) 6.3 G/DL ALBUMIN (test code = 2201) 4.4 G/DL CALC GLOBULIN (test code = 2240) 1.9 G/DL CALC A/G RATIO (test code = 2234) 2.3 RATIO BILIRUBIN, TOTAL (test code = 2207) 0.3 MG/DL ALKALINE PHOSPHATASE (test code = 2204) 96 U/L AST (test code = 2218) 14 U/L ALT (test code = 2219) 21 U/L Lucoi RodriguezHEMOGLOBIN [id number] 00:00:00* Test Item Value Reference Range Interpretation Comme jennifer HEMOGLOBIN A1c (test code = 91545) 8.1 % Lucio Villanueva AustinALBUMIN/CREATININE RATIO, RANDOM [id number] 00:00:00* Test Item Value Reference Range Interpretation Comme nts CREATININE, URINE, CONC. (te st code = 2072) 120.8 MG/DL ALBUMIN, URINE, RANDOM (test code = 21606) 0.7 MG/DL CALC ALBUMIN/CREAT, RND (srinivasan t code = 44866) 6 MG/G Lucio RodriguezCOMPREHENSIVE METABOLIC [id number] 00:00:00* Test Item Value Reference Range Interpretation Comme nts GLUCOSE (test code = 7) 314 MG/DL BUN (test code = 8) 17 MG/DL CREATININE (test code = 2214) 0.71 MG/DL eGFR (2020 CKD-EPI) (test code = 31569) 103 ML/MIN/1.73 CALC BUN/CREAT (test code = 2235) 24 RATIO SODIUM (test code = 2231) 137 MEQ/L POTASSIUM (test code = 2228) 3.4 MEQ/L CHLORIDE (test code = 2215) 100 MEQ/L CARBON DIOXIDE (test code = 2206) 26 MEQ/L CALCIUM (test code = 2209) 9.5 MG/DL PROTEIN, TOTAL (test code = 2229) 6.3 G/DL ALBUMIN (test code = 2201) 4.4 G/DL CALC GLOBULIN (test code = 2240) 1.9 G/DL CALC A/G RATIO (test code = 2234) 2.3 RATIO BILIRUBIN, TOTAL (test code = 2207) 0.3 MG/DL ALKALINE PHOSPHATASE (test code = 2204) 96 U/L AST (test code = 2218) 14 U/L ALT (test code = 2219) 21 U/L Lucio Villanueva [facility] W/AUTO [id number] 00:00:00* Test Item Value Reference Range Interpretation Comme nts WBC (test code = 1001) 6.2 K/UL RBC (test code = 1002) 4.28 M/UL HEMOGLOBIN (test code = 1003) 13.0 G/DL HEMATOCRIT (test code = 1004) 37.8 % MCV (test code = 1005) 88.3 fL MCH (test code = 1006) 30.4 PG MCHC (test code = 1007) 34.4 G/DL RDW (test code = 1038) 12.2 % NEUTROPHILS (test code = 1008) 53.1 % LYMPHOCYTES (test code = 1010) 37.1 % MONOCYTES (test code = 1011) 7.1 % EOSINOPHILS (test code = 1012) 1.9 % BASOPHILS (test code = 1013) 0.5 % IMMATURE GRANULOCYTES (test code = 1036) 0.3 % NUCLEATED RBCS (test code = 1065) 0.0 /100WBC'S PLATELET COUNT (test code = 1015) 296 K/UL ABSOLUTE NEUTROPHILS (test c ode = 1066) 3.31 K/UL ABSOLUTE LYMPHOCYTES (test c ode = 1067) 2.31 K/UL ABSOLUTE MONOCYTES (test cod e = 1068) 0.44 K/UL ABSOLUTE EOSINOPHILS (test c ode = 1040) 0.12 K/UL ABSOLUTE BASOPHILS (test cod e = 1069) 0.03 K/UL ABS IMMATURE GRANULOCYTES (t est code = 1020) 0.02 K/UL ABS NUCLEATED RBCS (test cod e = 69479) 0.00 K/UL Lucio Naranjo THIRD [id number] 00:00:00* Test Item Value Reference Range Interpretation Comme nts TSH, THIRD GENERATION (test code = 2821) 1.340 UIU/ML Lucio RodriguezCBC W/AUTO [id number] 00:00:00* Test Item Value Reference Range Interpretation Comme nts WBC (test code = 1001) 6.2 K/UL RBC (test code = 1002) 4.28 M/UL HEMOGLOBIN (test code = 1003) 13.0 G/DL HEMATOCRIT (test code = 1004) 37.8 % MCV (test code = 1005) 88.3 fL MCH (test code = 1006) 30.4 PG MCHC (test code = 1007) 34.4 G/DL RDW (test code = 1038) 12.2 % NEUTROPHILS (test code = 1008) 53.1 % LYMPHOCYTES (test code = 1010) 37.1 % MONOCYTES (test code = 1011) 7.1 % EOSINOPHILS (test code = 1012) 1.9 % BASOPHILS (test code = 1013) 0.5 % IMMATURE GRANULOCYTES (test code = 1036) 0.3 % NUCLEATED RBCS (test code = 1065) 0.0 /100WBC'S PLATELET COUNT (test code = 1015) 296 K/UL ABSOLUTE NEUTROPHILS (test c ode = 1066) 3.31 K/UL ABSOLUTE LYMPHOCYTES (test c ode = 1067) 2.31 K/UL ABSOLUTE MONOCYTES (test cod e = 1068) 0.44 K/UL ABSOLUTE EOSINOPHILS (test c ode = 1040) 0.12 K/UL ABSOLUTE BASOPHILS (test cod e = 1069) 0.03 K/UL ABS IMMATURE GRANULOCYTES (t est code = 1020) 0.02 K/UL ABS NUCLEATED RBCS (test cod e = 54457) 0.00 K/UL Lucio Naranjo, THIRD [id number] 00:00:00* Test Item Value Reference Range Interpretation Comme nts TSH, THIRD GENERATION (test code = 2821) 1.340 UIU/ML Lucio RodriguezCBC W/AUTO [id number] 00:00:00* Test Item Value Reference Range Interpretation Comme nts WBC (test code = 1001) 6.2 K/UL RBC (test code = 1002) 4.28 M/UL HEMOGLOBIN (test code = 1003) 13.0 G/DL HEMATOCRIT (test code = 1004) 37.8 % MCV (test code = 1005) 88.3 fL MCH (test code = 1006) 30.4 PG MCHC (test code = 1007) 34.4 G/DL RDW (test code = 1038) 12.2 % NEUTROPHILS (test code = 1008) 53.1 % LYMPHOCYTES (test code = 1010) 37.1 % MONOCYTES (test code = 1011) 7.1 % EOSINOPHILS (test code = 1012) 1.9 % BASOPHILS (test code = 1013) 0.5 % IMMATURE GRANULOCYTES (test code = 1036) 0.3 % NUCLEATED RBCS (test code = 1065) 0.0 /100WBC'S PLATELET COUNT (test code = 1015) 296 K/UL ABSOLUTE NEUTROPHILS (test c ode = 1066) 3.31 K/UL ABSOLUTE LYMPHOCYTES (test c ode = 1067) 2.31 K/UL ABSOLUTE MONOCYTES (test cod e = 1068) 0.44 K/UL ABSOLUTE EOSINOPHILS (test c ode = 1040) 0.12 K/UL ABSOLUTE BASOPHILS (test cod e = 1069) 0.03 K/UL ABS IMMATURE GRANULOCYTES (t est code = 1020) 0.02 K/UL ABS NUCLEATED RBCS (test cod e = 03256) 0.00 K/UL Lucio Simmons, THIRD [id number] 00:00:00* Test Item Value Reference Range Interpretation Comme nts TSH, THIRD GENERATION (test code = 2821) 1.340 UIU/ML Lucio RodriguezCBC W/AUTO [id number] 00:00:00* Test Item Value Reference Range Interpretation Comme nts WBC (test code = 1001) 6.2 K/UL RBC (test code = 1002) 4.28 M/UL HEMOGLOBIN (test code = 1003) 13.0 G/DL HEMATOCRIT (test code = 1004) 37.8 % MCV (test code = 1005) 88.3 fL MCH (test code = 1006) 30.4 PG MCHC (test code = 1007) 34.4 G/DL RDW (test code = 1038) 12.2 % NEUTROPHILS (test code = 1008) 53.1 % LYMPHOCYTES (test code = 1010) 37.1 % MONOCYTES (test code = 1011) 7.1 % EOSINOPHILS (test code = 1012) 1.9 % BASOPHILS (test code = 1013) 0.5 % IMMATURE GRANULOCYTES (test code = 1036) 0.3 % NUCLEATED RBCS (test code = 1065) 0.0 /100WBC'S PLATELET COUNT (test code = 1015) 296 K/UL ABSOLUTE NEUTROPHILS (test c ode = 1066) 3.31 K/UL ABSOLUTE LYMPHOCYTES (test c ode = 1067) 2.31 K/UL ABSOLUTE MONOCYTES (test cod e = 1068) 0.44 K/UL ABSOLUTE EOSINOPHILS (test c ode = 1040) 0.12 K/UL ABSOLUTE BASOPHILS (test cod e = 1069) 0.03 K/UL ABS IMMATURE GRANULOCYTES (t est code = 1020) 0.02 K/UL ABS NUCLEATED RBCS (test cod e = 76190) 0.00 K/UL Lucio RodriguezTSH, THIRD [id number] 00:00:00* Test Item Value Reference Range Interpretation Comme nts TSH, THIRD GENERATION (test code = 2821) 1.340 UIU/ML Lucio RodriguezCBC W/AUTO [id number] 00:00:00* Test Item Value Reference Range Interpretation Comme nts WBC (test code = 1001) 6.2 K/UL RBC (test code = 1002) 4.28 M/UL HEMOGLOBIN (test code = 1003) 13.0 G/DL HEMATOCRIT (test code = 1004) 37.8 % MCV (test code = 1005) 88.3 fL MCH (test code = 1006) 30.4 PG MCHC (test code = 1007) 34.4 G/DL RDW (test code = 1038) 12.2 % NEUTROPHILS (test code = 1008) 53.1 % LYMPHOCYTES (test code = 1010) 37.1 % MONOCYTES (test code = 1011) 7.1 % EOSINOPHILS (test code = 1012) 1.9 % BASOPHILS (test code = 1013) 0.5 % IMMATURE GRANULOCYTES (test code = 1036) 0.3 % NUCLEATED RBCS (test code = 1065) 0.0 /100WBC'S PLATELET COUNT (test code = 1015) 296 K/UL ABSOLUTE NEUTROPHILS (test c ode = 1066) 3.31 K/UL ABSOLUTE LYMPHOCYTES (test c ode = 1067) 2.31 K/UL ABSOLUTE MONOCYTES (test cod e = 1068) 0.44 K/UL ABSOLUTE EOSINOPHILS (test c ode = 1040) 0.12 K/UL ABSOLUTE BASOPHILS (test cod e = 1069) 0.03 K/UL ABS IMMATURE GRANULOCYTES (t est code = 1020) 0.02 K/UL ABS NUCLEATED RBCS (test cod e = 99289) 0.00 K/UL Lucio RodriguezWILLIAM, THIRD [id number] 00:00:00* Test Item Value Reference Range Interpretation Comme nts TSH, THIRD GENERATION (test code = 2821) 1.340 UIU/ML Lucio Villanueva MichaelCBC W/AUTO [id number] 00:00:00* Test Item Value Reference Range Interpretation Comme nts WBC (test code = 1001) 6.2 K/UL RBC (test code = 1002) 4.28 M/UL HEMOGLOBIN (test code = 1003) 13.0 G/DL HEMATOCRIT (test code = 1004) 37.8 % MCV (test code = 1005) 88.3 fL MCH (test code = 1006) 30.4 PG MCHC (test code = 1007) 34.4 G/DL RDW (test code = 1038) 12.2 % NEUTROPHILS (test code = 1008) 53.1 % LYMPHOCYTES (test code = 1010) 37.1 % MONOCYTES (test code = 1011) 7.1 % EOSINOPHILS (test code = 1012) 1.9 % BASOPHILS (test code = 1013) 0.5 % IMMATURE GRANULOCYTES (test code = 1036) 0.3 % NUCLEATED RBCS (test code = 1065) 0.0 /100WBC'S PLATELET COUNT (test code = 1015) 296 K/UL ABSOLUTE NEUTROPHILS (test c ode = 1066) 3.31 K/UL ABSOLUTE LYMPHOCYTES (test c ode = 1067) 2.31 K/UL ABSOLUTE MONOCYTES (test cod e = 1068) 0.44 K/UL ABSOLUTE EOSINOPHILS (test c ode = 1040) 0.12 K/UL ABSOLUTE BASOPHILS (test cod e = 1069) 0.03 K/UL ABS IMMATURE GRANULOCYTES (t est code = 1020) 0.02 K/UL ABS NUCLEATED RBCS (test cod e = 41670) 0.00 K/UL Lucio RodriguezTSH, THIRD [id number] 00:00:00* Test Item Value Reference Range Interpretation Comme nts TSH, THIRD GENERATION (test code = 2821) 1.340 UIU/ML Lucio RodriguezHEMOGLOBIN [id number] 06:39:39* Test Item Value Reference Range Interpretation Comme nts HEMOGLOBIN A1c (test code = 41340) 8.1 % 4.2-5.6 H [employer] GUIDELINES FOR HGB A1C: PREDIABETES/INCREASED RISK . . . . . . . 5.7-6.4% DIAGNOSIS OF DIABETES . . . . . . . . . >=6.5% WITH CONFIRMATION OR APPROPRIATE SYMPTOMS NOTE: ASSAY MAY BE AFFECTED BY HEMOGLOBINOPATHIES (SICKLE CELL ANEMIA, S-C DISEASE, OTHERS) OR ARTIFICIALLY LOWERED BY DECREASED RED CELL SURVIVAL (HEMOLYTIC ANEMIAS, BLOOD LOSS, ETC.). CONSIDER ALTERNATE TESTING OR LABORATORY CONSULTATION. COMPREHENSIVE METABOLIC [id number] 06:16:10* Test Item Value Reference Range Interpretation Comme nts GLUCOSE (test code = 2217) 271 MG/DL 70-99 H BUN (test code = 2208) 15 MG/DL 6-20 CREATININE (test code = 2214) 0.57 MG/DL 0.60-1.30 L eGFR (2020 CKD-EPI) (test code = 81445) 110 ML/MIN/1.73 >60 CALC BUN/CREAT (test code = 2235) 26 RATIO 6-28 SODIUM (test code = 2231) 137 MEQ/L 133-146 POTASSIUM (test code = 2228) 3.8 MEQ/L 3.5-5.4 CHLORIDE (test code = 2215) 96 MEQ/L 95-107 CARBON DIOXIDE (test code = 2206) 28 MEQ/L 19-31 CALCIUM (test code = 2209) 10.1 MG/DL 8.5-10.5 PROTEIN, TOTAL (test code = 222) 7.0 G/DL 6.1-8.3 ALBUMIN (test code = 2201) 4.6 G/DL 3.5-5.2 CALC GLOBULIN (test code = 2240) 2.4 G/DL 1.9-3.7 CALC A/G RATIO (test code = 2234) 1.9 RATIO 1.0-2.6 BILIRUBIN, TOTAL (test code = 2207) 0.2 MG/DL See_Comment [Automated me ssage] The system which generated this result transmitted reference range: <=1.2. The reference range was not used to interpret this result as normal/abnormal. ALKALINE PHOSPHATASE (test code = 2204) 95 U/L 40-130 AST (test code = 2218) 19 U/L 9-40 ALT (test code = 2219) 21 U/L 5-40 LIPID [id number] 06:16:10* Test Item Value Reference Range Interpretation Comme nts CHOLESTEROL (test code = 2210) 248 MG/DL <200 H TRIGLYCERIDES (test code = 2232) 467 MG/DL <150 H HDL CHOLESTEROL (test code = 2220) 50 MG/DL >39 CALC LDL CHOL (test code = 2237) (NOTE) MG/DL <100 UNABLE TO CALCUL ATE A VALID LDL CHOLESTEROL WHEN THE TRIGLYCERIDEVALUE IS GREATER THAN 400 MG/DL.UNABLE TO CALCULATE A VALID LDL CHOLESTEROL WHEN THE TRIGLYCERIDEVALUE IS GREATER THAN 400 MG/DL. NOTE: CALCULATED LDL IS BASED ON KAMRAN-CHADWICK METHOD WHICHINCLUDES ADJUSTABLE TRIGLYCERIDE:VLDL CHOLESTEROL RATIO.THIS FACTOR VARIES BY MEASURED TRIGLYCERIDE AND NON-HDLCHOLESTEROL CONCENTRATIONS WITH INCREASED CALCULATED LDL SEENIN HIGHER TRIGLYCERIDE OR LOWER NON-HDL SPECIMENS. FOR MOREINFORMATION, SEE CLIENT ANNOUNCEMENT AT [email or web address] CalcLDL-C RISK RATIO LDL/HDL (test code = 2238) (NOTE) RATIO <3.22 UNABLE TO GADIEL CULATE [facility] has important pathology staff changes effective 07/07/2022. New pathology staff will provide uninterrupted, excellent patient care and clinical consultation. See URL: [email or web address] UNLESS OTHERWISE INDICATED, ALL TESTING PERFORMED AT [facility] [address] [place] [address], [place] [address] [employer]: EDWARDO VARGHESE M.D. CLIA NUMBER [id number] [place]. [id number] HEMOGLOBIN [id number] 00:00:00* Test Item Value Reference Range Interpretation Comme nts HEMOGLOBIN A1c (test code = 29305) 8.1 % Lucio RodriguezCOMPREHENSIVE METABOLIC [id number] 00:00:00* Test Item Value Reference Range Interpretation Comme nts GLUCOSE (test code = 2217) 271 MG/DL BUN (test code = 2208) 15 MG/DL CREATININE (test code = 2214) 0.57 MG/DL eGFR (2020 CKD-EPI) (test code = 62204) 110 ML/MIN/1.73 CALC BUN/CREAT (test code = 2235) 26 RATIO SODIUM (test code = 2231) 137 MEQ/L POTASSIUM (test code = 2228) 3.8 MEQ/L CHLORIDE (test code = 2215) 96 MEQ/L CARBON DIOXIDE (test code = 2206) 28 MEQ/L CALCIUM (test code = 2209) 10.1 MG/DL PROTEIN, TOTAL (test code = 2229) 7.0 G/DL ALBUMIN (test code = 2201) 4.6 G/DL CALC GLOBULIN (test code = 2240) 2.4 G/DL CALC A/G RATIO (test code = 2234) 1.9 RATIO BILIRUBIN, TOTAL (test code = 2207) 0.2 MG/DL ALKALINE PHOSPHATASE (test code = 2204) 95 U/L AST (test code = 2218) 19 U/L ALT (test code = 2219) 21 U/L Lucio Villanueva AustinLIPID [id number] 00:00:00* Test Item Value Reference Range Interpretation Comme nts CHOLESTEROL (test code = 2210) 248 MG/DL TRIGLYCERIDES (test code = 2232) 467 MG/DL HDL CHOLESTEROL (test code = 2220) 50 MG/DL CALC LDL CHOL (test code = 2237) (NOTE) MG/DL RISK RATIO LDL/HDL (test cod e = 2238) (NOTE) RATIO Lucio Villanueva AustinHEMOGLOBIN [id number] 00:00:00* Test Item Value Reference Range Interpretation Comme nts HEMOGLOBIN A1c (test code = 91141) 8.1 % Lucio Villanueva AustinCOMPREHENSIVE METABOLIC [id number] 00:00:00* Test Item Value Reference Range Interpretation Comme nts GLUCOSE (test code = 2217) 271 MG/DL BUN (test code = 2208) 15 MG/DL CREATININE (test code = 2214) 0.57 MG/DL eGFR (2020 CKD-EPI) (test code = 13725) 110 ML/MIN/1.73 CALC BUN/CREAT (test code = 2235) 26 RATIO SODIUM (test code = 2231) 137 MEQ/L POTASSIUM (test code = 2228) 3.8 MEQ/L CHLORIDE (test code = 2215) 96 MEQ/L CARBON DIOXIDE (test code = 2206) 28 MEQ/L CALCIUM (test code = 2209) 10.1 MG/DL PROTEIN, TOTAL (test code = 2229) 7.0 G/DL ALBUMIN (test code = 2201) 4.6 G/DL CALC GLOBULIN (test code = 2240) 2.4 G/DL CALC A/G RATIO (test code = 2234) 1.9 RATIO BILIRUBIN, TOTAL (test code = 2207) 0.2 MG/DL ALKALINE PHOSPHATASE (test code = 2204) 95 U/L AST (test code = 2218) 19 U/L ALT (test code = 2219) 21 U/L Lucio Villanueva AustinLIPID [id number] 00:00:00* Test Item Value Reference Range Interpretation Comme nts CHOLESTEROL (test code = 2210) 248 MG/DL TRIGLYCERIDES (test code = 2232) 467 MG/DL HDL CHOLESTEROL (test code = 2220) 50 MG/DL CALC LDL CHOL (test code = 2237) (NOTE) MG/DL RISK RATIO LDL/HDL (test cod e = 2238) (NOTE) RATIO Lucio RodriguezHEMOGLOBIN [id number] 00:00:00* Test Item Value Reference Range Interpretation Comme nts HEMOGLOBIN A1c (test code = 16838) 8.1 % Lucio Villanueva MichaelCOMPREHENSIVE METABOLIC [id number] 00:00:00* Test Item Value Reference Range Interpretation Comme nts GLUCOSE (test code = 2217) 271 MG/DL BUN (test code = 2208) 15 MG/DL CREATININE (test code = 2214) 0.57 MG/DL eGFR (2020 CKD-EPI) (test code = 34827) 110 ML/MIN/1.73 CALC BUN/CREAT (test code = 2235) 26 RATIO SODIUM (test code = 2231) 137 MEQ/L POTASSIUM (test code = 2228) 3.8 MEQ/L CHLORIDE (test code = 2215) 96 MEQ/L CARBON DIOXIDE (test code = 2206) 28 MEQ/L CALCIUM (test code = 2209) 10.1 MG/DL PROTEIN, TOTAL (test code = 2229) 7.0 G/DL ALBUMIN (test code = 2201) 4.6 G/DL CALC GLOBULIN (test code = 2240) 2.4 G/DL CALC A/G RATIO (test code = 2234) 1.9 RATIO BILIRUBIN, TOTAL (test code = 2207) 0.2 MG/DL ALKALINE PHOSPHATASE (test code = 2204) 95 U/L AST (test code = 2218) 19 U/L ALT (test code = 2219) 21 U/L Lucio RodriguezLIPID [id number] 00:00:00* Test Item Value Reference Range Interpretation Comme nts CHOLESTEROL (test code = 2210) 248 MG/DL TRIGLYCERIDES (test code = 2232) 467 MG/DL HDL CHOLESTEROL (test code = 2220) 50 MG/DL CALC LDL CHOL (test code = 2237) (NOTE) MG/DL RISK RATIO LDL/HDL (test cod e = 2238) (NOTE) RATIO Lucio RodriguezHEMOGLOBIN [id number] 00:00:00* Test Item Value Reference Range Interpretation Comme nts HEMOGLOBIN A1c (test code = 01554) 8.1 % Lucio RodriguezCOMPREHENSIVE METABOLIC [id number] 00:00:00* Test Item Value Reference Range Interpretation Comme nts GLUCOSE (test code = 2217) 271 MG/DL BUN (test code = 2208) 15 MG/DL CREATININE (test code = 2214) 0.57 MG/DL eGFR (2020 CKD-EPI) (test code = 60920) 110 ML/MIN/1.73 CALC BUN/CREAT (test code = 2235) 26 RATIO SODIUM (test code = 2231) 137 MEQ/L POTASSIUM (test code = 2228) 3.8 MEQ/L CHLORIDE (test code = 2215) 96 MEQ/L CARBON DIOXIDE (test code = 2206) 28 MEQ/L CALCIUM (test code = 2209) 10.1 MG/DL PROTEIN, TOTAL (test code = 2229) 7.0 G/DL ALBUMIN (test code = 2201) 4.6 G/DL CALC GLOBULIN (test code = 2240) 2.4 G/DL CALC A/G RATIO (test code = 2234) 1.9 RATIO BILIRUBIN, TOTAL (test code = 2207) 0.2 MG/DL ALKALINE PHOSPHATASE (test code = 2204) 95 U/L AST (test code = 2218) 19 U/L ALT (test code = 2219) 21 U/L Lucio Villanueva AustinLIPID [id number] 00:00:00* Test Item Value Reference Range Interpretation Comme nts CHOLESTEROL (test code = 2210) 248 MG/DL TRIGLYCERIDES (test code = 2232) 467 MG/DL HDL CHOLESTEROL (test code = 2220) 50 MG/DL CALC LDL CHOL (test code = 2237) (NOTE) MG/DL RISK RATIO LDL/HDL (test cod e = 2238) (NOTE) RATIO Lucio RodriguezHEMOGLOBIN [id number] 00:00:00* Test Item Value Reference Range Interpretation Comme nts HEMOGLOBIN A1c (test code = 19411) 8.1 % Lucio RodriguezCOMPREHENSIVE METABOLIC [id number] 00:00:00* Test Item Value Reference Range Interpretation Comme nts GLUCOSE (test code = 2217) 271 MG/DL BUN (test code = 2208) 15 MG/DL CREATININE (test code = 2214) 0.57 MG/DL eGFR (2020 CKD-EPI) (test code = 67605) 110 ML/MIN/1.73 CALC BUN/CREAT (test code = 2235) 26 RATIO SODIUM (test code = 2231) 137 MEQ/L POTASSIUM (test code = 2228) 3.8 MEQ/L CHLORIDE (test code = 2215) 96 MEQ/L CARBON DIOXIDE (test code = 2206) 28 MEQ/L CALCIUM (test code = 2209) 10.1 MG/DL PROTEIN, TOTAL (test code = 2229) 7.0 G/DL ALBUMIN (test code = 2201) 4.6 G/DL CALC GLOBULIN (test code = 2240) 2.4 G/DL CALC A/G RATIO (test code = 2234) 1.9 RATIO BILIRUBIN, TOTAL (test code = 2207) 0.2 MG/DL ALKALINE PHOSPHATASE (test code = 2204) 95 U/L AST (test code = 2218) 19 U/L ALT (test code = 2219) 21 U/L Lucio RodriguezLIPID [id number] 00:00:00* Test Item Value Reference Range Interpretation Comme nts CHOLESTEROL (test code = 2210) 248 MG/DL TRIGLYCERIDES (test code = 2232) 467 MG/DL HDL CHOLESTEROL (test code = 2220) 50 MG/DL CALC LDL CHOL (test code = 2237) (NOTE) MG/DL RISK RATIO LDL/HDL (test cod e = 2238) (NOTE) RATIO Lucio RodriguezHEMOGLOBIN [id number] 00:00:00* Test Item Value Reference Range Interpretation Comme jennifer HEMOGLOBIN A1c (test code = 31512) 8.1 % Lucio RodriguezCOMPREHENSIVE METABOLIC [id number] 00:00:00* Test Item Value Reference Range Interpretation Comme nts GLUCOSE (test code = 2217) 271 MG/DL BUN (test code = 2208) 15 MG/DL CREATININE (test code = 2214) 0.57 MG/DL eGFR (2020 CKD-EPI) (test code = 01296) 110 ML/MIN/1.73 CALC BUN/CREAT (test code = 2235) 26 RATIO SODIUM (test code = 2231) 137 MEQ/L POTASSIUM (test code = 2228) 3.8 MEQ/L CHLORIDE (test code = 2215) 96 MEQ/L CARBON DIOXIDE (test code = 2206) 28 MEQ/L CALCIUM (test code = 2209) 10.1 MG/DL PROTEIN, TOTAL (test code = 2229) 7.0 G/DL ALBUMIN (test code = 2201) 4.6 G/DL CALC GLOBULIN (test code = 2240) 2.4 G/DL CALC A/G RATIO (test code = 2234) 1.9 RATIO BILIRUBIN, TOTAL (test code = 2207) 0.2 MG/DL ALKALINE PHOSPHATASE (test code = 2204) 95 U/L AST (test code = 2218) 19 U/L ALT (test code = 2219) 21 U/L Lucio RodriguezLIPID [id number] 00:00:00* Test Item Value Reference Range Interpretation Comme nts CHOLESTEROL (test code = 2210) 248 MG/DL TRIGLYCERIDES (test code = 2232) 467 MG/DL HDL CHOLESTEROL (test code = 2220) 50 MG/DL CALC LDL CHOL (test code = 2237) (NOTE) MG/DL RISK RATIO LDL/HDL (test cod e = 2238) (NOTE) RATIO Lucio Villanueva Michael- INSERT PICC/MIDLINE [id number] 16:52:00 [facility] 1970 Sex: F FAX: Becki Luther MD [phone] Camps: ADAMA St: REG FAX: Cam Felix [phone] FAX: Kevin Enrique MD [phone] Name: MARTI BANSALMI BAILEE [facility] : 1970 Age/S: 50/F [address] Unit #: [id number] Loc: [place] [id number] Phys: Kevin Enrique MD Acct: [id number] Dis Date: Status: REG CLI PHONE #: [phone] Exam Date: 10/30/2020 1520 FAX #: [phone] Reason: [facility]CI ABX INFUSION/UTI EXAMS: CPT CODE: [id number] INSERT PICC/MIDLINE >5 19695 PICC LINE INSERTION INDICATION: Long-term antibiotic infusion, urinary tractinfection. PROCEDURE: Informed consent was obtained prior to the procedure. Using maximum sterile barrier technique, the left upper extremity was prepped and draped. Total fluoroscopy time: 29 seconds. One AP digitally saved fluoroscopy image was kept in the patient's record during the catheter inse rtion. DAP 0.177 Gycm2. The basilic vein was identified and selected under ultrasound, confirmed jeb patent and permanent images were kept in the patient's record. Lidocaine 1% was used for local anesthesia. Under direct sonographic guidance, the selected vein was punctured and a 0.018 inch guidewire advanced into the vein. A peel-away sheath was advanced over the guidewire. Under fluoroscopy, the distance from the puncture site to the cavoatrial junction was measured with a microguidewire advanced centrally. A 5 Latvian double lumen peripherally inserted central catheter (PICC) was trimmed to the appropriate length and advanced through the sheath, and the peel-away sheath removed. Appropriate position was confirmed and documented fluoroscopically (tip at the cavoatrial junction). The PICC was secured in place with a StatLock device and covered with a sterile dressing. No acute complication was encountered. (Catheter length 45 cm). IMPRESSION: 1. PICC line insertion, which can be used immediately. 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 PAGE 2 Signed Report- MAMMO CARLOS SCR CAD [id number] 14:30:00 [facility] : 1970 Sex: F FAX: Becki Luther MD [phone] Camps: ADAMA St: REG FAX: Y Cam Martines [phone] FAX: Jeremy Goodwni [phone] Name: MARTI BANSALMI [facility] : 1970 A ge/S: 50/F [address] [facility] Unit #: [id number] Loc: [place], [place] [address] Phys: Jeremy Bansal MD Acct: [id number] Dis Date: Status: REG CLI PHONE #: [phone] Exam Date: 10/17/2020900 FAX #: [phone] Reason: SCREENING EXAMS: CPT CODE: [id number] [place] [address] BILATERAL DIGITAL SCREENING MAMMOGRAPHY HISTORY: SCREENING. COMPARISON: 07/10/2018-01/25/2013. TECHNIQUE: digital 2D and 3-D tomosynthesis projections were obtained. Postprocessing computer aideddetection was utilized (enhanced V preview). FINDINGS : Breast density : mildly dense scattered fibroglandular tissue. Bilaterally, there is no irregular mass, clustered microcalcifications, nor other secondary signs of malignancy. Few, isolated and benign microcalcifications. IMPRESSION: No evidence of malignancy. ACR - BI-RADS CATEGORY 2 - Benign Findings. RECOMMENDATION: yearly screening mammography. [facility] Accreditation FDA Certified Board Certified Radiologists (ARRT) Registered Mammography Technologists NOTE: The patient will receive a written notice about the results of this study and will also receive in writing a separate letter reminding the patient when the next mammography should be scheduled. 1. A negative x-ray report should not delay biopsy if a dominant or clinically suspicious mass is present. 4 to 8% of cancers are not identified by x-ray. 2. A negative report may reinforce clinical impression. PAGE 1 Signed Report (CONTINUED) FAX: Becki Luther MD [phone] Camps: ADAMA St: REG FAX: Cam Blanco [phone] FAX: Jeremy Goodwin [phone] Name: SUZI BANSAL [facility] : 1970 Age/S: 50/F [address] [facility] Unit #: [id number] Loc: [place] [address] Phys: Jeremy Bansal MD Acct: [id number] Dis Date: Status: REG CLI PHONE #: [phone] Exam Date: 10/17/2020 09 FAX #: [phone] Reason: SCREENING EXAMS: CPT CODE: [id number] [place] [address] (Continued) 3. Adenosis and dense breast may obscure an underlyingneoplasm. 4. False positive results average 6 to 10%. FOR INTERNAL CODING PURPOSES ONLY RESULT CODE: 2 FOLLOW UP: N at 1430 Reported and signed by: Angel Palacio MD CC: Becki Calvert MD; Cam Diaz MD Technologist: ZONIA BANG, RT(R)(M)(ARRT) Transcribed Date/Time/By: 10/17/2020 (7359) :[email or web address] Orig Print D/T: S: 10/17/2020 (3524) PAGE 2 Signed ReportTROPONIN I [id number] 21:01:00* Test Item Value Reference Range Interpretation Comme nts TROPONIN I RAPID (test code = TROPIRAP) 0.00 NG/ML 0.00-0.08 N An elevated trop onin value alone is not sufficient todiagnose a myocardial infarction. Rather, the patient'sclinical presentation (history, physical exam) and ECGshould be used in conjuction with troponin in the diagnosticevaluation of suspected myocardial infaction. A serialsampling protocol is recommended to facilitate theidentification of temporal changes in troponin levelscharacteristic of [place]. COMPREHENSIVE METABOLIC [id number] 18:56:00* Test Item Value Reference Range Interpretation Comme nts SODIUM (test code = NA) 135 mmol/L 136-145 L POTASSIUM (test code = K) 3.3 mmol/L 3.5-5.1 L CHLORIDE (test code = CL) 100 mmol/L 98-107 N CARBON DIOXIDE (test code = CO2) 29 mmol/L 21-32 N GLUCOSE (test code = GLU) 166 mg/dL 65-99 H BLOOD UREA NITROGEN (test code = BUN) 14 mg/dL 7-18 N GLOMERULAR FILTRATION RATE (test code = GFR) 71 Reporting units: ml/min/1.73m\S\2 (Modified MDRD Formula)If age < 18 years, GFR is not applicable. KD/DOQI Clinical Practice Guidelines: Stage 1: Kidney damage w/normal or increased GFR >90Stage 2: Kidney damage w/mild decrease in GFR 60 - 89Stage 3: Moderate decrease in GFR 30 - 59Stage 4: Severe decrease in GFR 15 - 29Stage 5: Kidney failure < 15 (or dialysis) CREATININE (test code = CREAT) 0.9 mg/dL 0.6-1.0 N TOTAL PROTEIN (test code = PROT) 8.2 g/dL 6.4-8.2 N ALBUMIN (test code = ALB) 4.1 g/dL 3.4-5.0 N GLOBULIN (test code = GLOB) 4.1 gm/dL 2.3-3.5 H ALBUMIN/GLOBULIN RATIO (test code = A/G) 1.0 1.5-2.2 L CALCIUM (test code = CA) 9.4 mg/dL 7.8-10.9 N BILIRUBIN TOTAL (test code = BILT) 0.3 mg/dL 0.0-1.1 N SGOT/AST (test code = AST) 19 U/L 15-37 N Reporting units: International Units/L SGPT/ALT (test code = ALT) 35 U/L 10-30 H Reporting units: International Units/L ALKALINE PHOSPHATASE TOTAL (test code = ALKP) 80 U/L 45-117 N - XR CHEST 2 [id number] 18:41:00FAX: Becki Luther MD [phone] Camps: ER St: REG FAX: Cam Felix [phone] FAX: Mahendra Aguirre MD [phone] Name: SUZI BANSAL [facility] : 1970 Age/S: 49/F [address] [facility] Unit #: [id number] Loc: [place], [place] [address] Phys: Mahendra Aguirre MD Acct: [id number] Dis Date: Status: REG ER PHONE #: [phone] Exam Date: 05/19/2019 1836 FAX #: [phone] Reason: cp EXAMS: CPT CODE: [id number] XR CHEST 2 V 38556 DICTATION LOCATION: H48 HISTORY: Female, 49 years of age with chest pain EXAM: 2 VIEW CHEST X-RAY COMPARISON: 04/02/2014 COMMENT: PA and lateral views are provided. No acute infiltrate or effusion is seen. Cardiomediastinal silhouette is within normal limits. No acute bony abnormalities. IMPRESSION: No acute cardiopulmonary disease. at 1841 Reported and signed by: ALTAGRACIA SALGADO M.D. CC: Becki Calvert MD; Cam Ortiz; Mahendra Aguirre MD Technologist: James Rogel, RT(R)(ARRT) Transcribed Date/Time/By: 05/19/2019 (1840) :Rojas.CLW Orig Print D/T: S: 05/19/2019 (1843) Automated exposure control, iterative reconstruction technique, and/oradjustment of mA and/or kV according to patient's size was utilizedfor optimum radiation dose reduction. PAGE 1 Signed ReportTROPONIN I [id number] 18:40:00* Test Item Value Reference Range Interpretation Comme nts TROPONIN I RAPID (test code = TROPIRAP) 0.00 NG/ML 0.00-0.08 N An elevated trop onin value alone is not sufficient todiagnose a myocardial infarction. Rather, the patient'sclinical presentation (history, physical exam) and ECGshould be used in conjuction with troponin in the diagnosticevaluation of suspected myocardial infaction. A serialsampling protocol is recommended to facilitate theidentification of temporal changes in troponin levelscharacteristic of [place]. CBC W/AUTO [id number] 18:40:00* Test Item Value Reference Range Interpretation Comme nts WHITE BLOOD CELL (test code = WBC) 9.7 K/mm3 4.8-10.8 N RED BLOOD CELL (test code = RBC) 4.67 M/mm3 4.2-5.4 N HEMOGLOBIN (test code = HGB) 14.0 gm/DL 12.0-16.0 N HEMATOCRIT (test code = HCT) 41.9 % 34.7-43.3 N MEAN CELL VOLUME (test code = MCV) 89.7 fL 81-99 N MEAN CELL HGB (test code = MCH) 30.0 pg 27-31 N MEAN CELL HGB CONCETRATION ( test code = MCHC) 33.4 gm/dL 33-37 N RED CELL DISTRIBUTION WIDTH (test code = RDW) 12.2 % 11.5-14.5 N PLATELET COUNT (test code = PLT) 354 X10(3) 130-400 N MEAN PLATELET VOLUME (test c ode = MPV) 9.7 fL 9.4-12.4 N NEUTROPHIL % (test code = NT%) 53.4 % 51.5-79.7 N IMMATURE GRANULOCYTE % (test code = IG%) 0.400 % 0.108-0.322 H LYMPHOCYTE % (test code = LY%) 38.4 % 14-40 N MONOCYTE % (test code = MO%) 5.7 % 4.0-10.2 N EOSINOPHIL % (test code = EO%) 1.7 % 0-4.1 N BASOPHIL % (test code = BA%) 0.4 % 0.1-0.7 N NUCLEATED RBC % (test code = NRBC%) 0 % 0-0 N NEUTROPHIL # (test code = NT#) 5.2 K/mm3 2.5-8.6 N IMMATURE GRANULOCYTE # (test code = IG#) 0.040 K/mm3 0.0052-0.0224 H LYMPHOCYTE # (test code = LY#) 3.7 K/mm3 1.1-3.6 H MONOCYTE # (test code = MO#) 0.6 K/mm3 0.3-0.9 N EOSINOPHIL # (test code = EO#) 0.16 # 0.0-0.4 N BASOPHIL # (test code = BA#) 0.04 K/mm3 0.0-0.2 N NUCLEATED RBC # (test code = NRBC#) 0.00 K/mm3 0.00-0.20 N CHEMISTRY 8 [id number] 18:31:00* Test Item Value Reference Range Interpretation Comme nts IONIZED CALCIUM (test code = CAIABG) 1.17 mmol/L 1.13-1.32 N ISTAT-TCO2 VENOUS (test code = TCO2VP) 27 MMOL/L 24-30 N ISTAT-HEMOGLOBIN (test code = HBP) 15.0 G/DL 12.0-16.0 N ISTAT-HEMATOCRIT (test code = HCTP) 44 % 44.0-56.0 N ISTAT-SODIUM (test code = NAP) 136 MMOL/L 136-145 N ISTAT-POTASSIUM (test code = KP) 3.3 MMOL/L 3.5-5.1 L ISTAT-CHLORIDE (test code = CLP) 98 MMOL/L 98-107 N ISTAT GLUCOSE (test code = GLUP) 170 MG/DL 65-99 H ISTAT-BUN (test code = BUNP) 14 MG/DL 7-18 N BEDSIDE CREATININE (test cod e = CREATBED) 0.8 MG/DL 0.6-1.0 N - XR FOOT 2 VIEWS [id number] 16:26:00FAX: Kraig Neves NP Camps: ER St: REG FAX: eBcki Luther MD [phone] FAX: Cam Felix [phone] FAX: Jason Beatty MD Name: SUZI BANSAL [facility] : 1970 Age/S: 48/F [address] [facility] Unit #: [id number] Loc: [place], [place] [address] Phys: Jason Dubose MD Acct: [id number] Dis Date: Status: REG ER PHONE #: [phone] Exam Date: 08/27/2018 1607 FAX #: [phone] Reason: Contusion EXAMS: CPT CODE: [id number] XR FO[place] [address] [place] [address] Two-view left foot INDICATION: Left foot pain FINDINGS: AP and lateral views of the left foot demonstrates no acute fracture or subluxation. The overlying soft tissues are unremarkable. IMPRESSION: No acute osseous abnormality of the left foot. at 0514 Reported and signed by: MICAELA BALDWIN M.D. CC: Kraig Neves NP; Becki Calvert MD; Cam Ortiz; Jason Dubose MD Technologist: POWER AGUIRRE, RT,(R) ARRT Transcribed Date/Time/By: 08/27/2018 (0538) :[email or web address] Orig Print D/T: S: 08/27/2018 (6842) Automated exposure contr ol, iterative reconstruction technique, and/oradjustment of mA and/or kV according to patient's size was utilizedfor optimum radiation dose reduction. PAGE 1 Signed Report- MAMMO SCR CAD [id number] 14:04:00FAX: Becki Luther MD [phone] Camps: [address] St: REG Name: SUZI BANSAL [facility] : 1970 Age/S: 48/F [address] [facility] Unit #: [id number] Loc: [place] [address] Phys: Becki Calvert MD Acct: [id number] Dis Date: Status: REG CLI PHONE #: [phone] Exam Date: 07/10/2018 1315 FAX #: [phone] Reason: SCREENING EXAMS: CPT CODE: [id number] [place] [address] BILATERAL DIGITAL SCREENING MAMMOGRAPHY HISTORY: SCREENING. COMPARISON: 07/05/2017, 01/25/2013. PROTOCOL : Bilateral digital CC and MLO views. Postprocessing computer aided detection with R2 CAD was performed and reviewed. FINDINGS : Breast density : moderately dense heterogeneous fibrogl andular tissue, which may lower the sensitivity of mammography. Bilaterally, there is no irregular mass, clustered microcalcifications, nor other secondary signs of malignancy. IMPRESSION: No evidence of malignancy. ACR - BI-RADS CATEGORY 1 - Negative RECOMMENDATION: yearly screening mammography. * [facility] Accreditation FDA Certified Board Certified Radiologists (ARRT) Registered Mammography Technologists NOTE: The patientwill receive a written notice about the results of this study and will also receive in writing a separate letter reminding the patient when the next mammography should be scheduled. 1. A negative x-ray report should not delay biopsy if a dominant or clinically suspicious mass is present. 4 to 8% ofcancers are not identified by x-ray. 2. A negative report may reinforce clinical impression. 3. Adenosis and dense breast may obscure an underlying neoplasm. PAGE 1 Signed Report (CONTINUED) FAX: Becki Luther MD [phone] Camps: [address] St: REG Name: SUZI BANSAL [facility] : 1970 Age/S: 48/F [address] [facility] Unit #: [id number] Loc: [place], [place] [address] Phys: Becki Calvert MD Acct: [id number] Dis Date: Status: REG CLI PHONE #: [phone] Exam Date: 07/10/2018 1315 FAX #: [phone] Reason: SCREENING EXAMS: CPT CODE: [id number] [place] [address] (Continued) 4. False positive results average 6 to 10%. FOR INTERNAL CODING PURPOSES ONLY RESULT CODE: 1 FOLLOW UP: N at 1404 Reported and signed by: Angel Palacio MD CC: Becki Calvert MD Technologist: Trini Ryan RT(R)(M)(ARRT) Transcribed Date/Time/By: 07/10/2018 (0409) :[email or web address] Orig Print D/T: S: 07/10/2018 (3075) PAGE 2 Signed Report Notes Date/Time Note Provider Source [facility]2024-12-03 00:00:00 [facility]2024-08-28 00:00:00 [facility]2024-08-19 00:00:00 [facility]2024-06-03 00:00:00 [facility]2024-04-30 00:00:00 [facility]2020-01-11 18:41:00 [facility] EMERGENCY PROVIDER REPORT REPORT#:[id number] REPORT STATUS: Signed DATE:05/19/19 TIME: 184 PATIENT: SUZI BANSAL UNIT #: [id number] ROOM/BED: AGE: 49 SEX: F PCP PHYS: Cam Martines SERVICE AUTHOR: Mahendra Aguirre MD * ALL edits or amendments must be made on the electronic/computer document * HPI-Chest Pain 40 and Over General Confirmed Patient Yes Patient Type New patient Initial Greet Date/Time 05/19/[address] Martines Presentation Chief Complaint Chest pain Hx Obtained From Patient Sudden in Onset? Yes Onset Occurred Today Symptom Duration Since onset Radiation Does not radiate. )( Migration/Movement None Associated with Reports: Shortness of Breath. Denies: Cough, non-productive, Cough, productive, Nausea, Vomiting. Context Similar Sx Previous No Free Text HPI Notes Free Text HPI Notes Ms. Bansal is a 49 year old female with pmhx remarkable for DM2, HTN and HLD, who presents to our ER complaining of CP with onset today. Pt reports that after being involved in an argument, she started feeling a pressure on her chest. She also adds that her face started turning red, her mouth was dry and felt SOB. No fever, chills, nausea, emesis, leg pain or swelling reported. No further information provided at this time. Portions of this section were scribed by Kraig Barrera on 05/19/19 at 2132 Risk-Chest Pain 40 and Over Risk Stratification )( Coronary Artery Disease Risk factors reviewed )( Thoracic Aortic Dissection Risk factors reviewed )( Pulmonary Embolism Risk factors reviewed )( AMI-Aspirin Aspirin Last 24 Hrs None )( HEART for MACE )( HEART for MACE Response Value History Low index of suspicion 0 ECG Interpretation Normal ECG 0 Age Age 45 - 65 1 Risk Factors for CAD 1-2 CAD risk factors 1 Troponin < or = to NL troponin 0 Total 2 Portions of this section were scribed by Kraig Barrera on 05/19/19 at 2132 Review of Systems ROS Statements All systems rev neg except as marked. Focused Review of Systems Constitutional Denies: Chills, Fever, Weakness - generalized. Respiratory Reports: Shortness of breath. Denies: Cough, non-productive, Cough, productive. Cardiovascular Reports: Chest pain. GI Denies: Abdominal pain, Nausea, Vomiting. Musculoskeletal Denies: Back pain, Extremity pain, Extremity swelling. Skin Denies: Rash, Swelling. Portions of this section were scribed by Kraig Barrera on 05/19/19 at 1856 Past Medical History - Adult Stated Complaint CHEST PRESSURE AFTER AN ARGUMENT Allergies Coded Allergies: No Known Allergies (04/02/14) Home Medications Reported Medications Unable to Obtain Home Medication History Review of Nursing Notes Rev avail, and agree Past Medical History: Reports: Diabetes mellitus, Hypertension, Dyslipidemia. Past Surgical History: Reports: , Hysterectomy. Drug Use Denies recreational drugs Smoking status for patients 13 years old or older: Unknown,if ever smoked Other Social History Primary family support, Local resident, Good social support Portions of this section were scribed by Kraig Barrera on 05/19/19 at 1856 Physical Exam Vital Signs Vital Signs First Documented: Result Date Time Pulse Ox 99 05/19 180 B/P 203/107 05/19 180 B/P Mean 139 05/19 1808 O2 Delivery Room air 05/19 1808 Temp 37.0 05/19 1808 Pulse 112 05/19 1808 Resp 22 05/19 1808 Last Documented: Result Date Time Pulse Ox 98 05/19 2139 B/P 147/72 05/19 2139 B/P Mean 97 05/19 2139 Temp 36.9 05/19 2139 Pulse 89 05/19 2139 Resp 16 05/19 2139 O2 Delivery Room air 05/19 1808 Review of Vital Signs Reviewed Focused PE General/Const General/Const Awake, Alert, No acute distress, Cooperative MS Neck Neck Supple Resp/Chest Respiratory/Chest Breath sounds NL, Breath sounds = bilat, No respiratory distress Cardiovascular Cardiovascular Regular rhythm, Heart sounds NL Heart Rate/Rhythm Tachycardia. Abdomen/GI Abdomen/GI Soft, Non-tender, No guarding Skin Skin No rash, Warm, Dry Text/Dict Notes Flushed face Neurologic Neurologic Oriented X3, Speech NL Additional PE Ears/Nose/Throat Ears/Nose/Throat Airway patent, Mucous membranes moist Portions of this section were scribed by Kraig Barrera on 05/19/19 at 2043 Interpretation Diagnostics Lab Results Interpretation Results Laboratory Tests 05/19/19 1825: [Embedded Image Not Available] Laboratory Tests: 05/19 Blood Gas VBG Total CO2 (24 - 30 MMOL/L) 27 Ionized Calcium (1.13 - 1.32 mmol/L) 1.17 Chemistry POC Sodium (136 - 145 MMOL/L) 136 Sodium (136 - 145 mmol/L) 135 L POC Potassium (3.5 - 5.1 MMOL/L) 3.3 L Potassium (3.5 - 5.1 mmol/L) 3.3 L POC Chloride (98 - 107 MMOL/L) 98 Chloride (98 - 107 mmol/L) 100 Carbon Dioxide (21 - 32 mmol/L) 29 POC BUN (7 - 18 MG/DL) 14 BUN (7 - 18 mg/dL) 14 Creatinine (0.6 - 1.0 mg/dL) 0.9 POC Creatinine (0.6 - 1.0 MG/DL) 0.8 Glomerular Filtr Rate 71 Glucose (65 - 99 mg/dL) 166 H POC Glucose (65 - 99 MG/DL) 170 H Calcium (7.8 - 10.9 mg/dL) 9.4 Total Bilirubin (0.0 - 1.1 mg/dL) 0.3 AST (15 - 37 U/L) 19 ALT (10 - 30 U/L) 35 H Total Alk Phosphatase (45 - 117 U/L) 80 Rapid Troponin I (0.00 - 0.08 NG/ML) 0.00 0.00 Total Protein (6.4 - 8.2 g/dL) 8.2 Albumin (3.4 - 5.0 g/dL) 4.1 Globulin (2.3 - 3.5 gm/dL) 4.1 H Albumin/Globulin Ratio (1.5 - 2.2) 1.0 L Hematology WBC (4.8 - 10.8 K/mm3) 9.7 RBC (4.2 - 5.4 M/mm3) 4.67 Hgb (12.0 - 16.0 gm/DL) 14.0 POC Hgb (12.0 - 16.0 G/DL) 15.0 Hct (34.7 - 43.3 %) 41.9 POC Hct (44.0 - 56.0 %) 44 MCV (81 - 99 fL) 89.7 MCH (27 - 31 pg) 30.0 MCHC (33 - 37 gm/dL) 33.4 RDW (11.5 - 14.5 %) 12.2 Plt Count (130 - 400 X10(3)) 354 MPV (9.4 - 12.4 fL) 9.7 Neut % (Auto) (51.5 - 79.7 %) 53.4 Lymph % (Auto) (14 - 40 %) 38.4 [place] % (Auto) (4.0 - 10.2 %) 5.7 Eos % (Auto) (0 - 4.1 %) 1.7 Baso % (Auto) (0.1 - 0.7 %) 0.4 Neut # (Auto) (2.5 - 8.6 K/mm3) 5.2 Lymph # (Auto) (1.1 - 3.6 K/mm3) 3.7 H [place] # (Auto) (0.3 - 0.9 K/mm3) 0.6 Eos # (Auto) (0.0 - 0.4 #) 0.16 Baso # (Auto) (0.0 - 0.2 K/mm3) 0.04 Nucleated RBC % (0 - 0 %) 0 Nucleated RBCs # (Man) (0.00 - 0.20 K/mm3) 0.00 Recent Impressions: RADIOLOGY - XR CHEST 2 V 05/19 1835 Report Impression - Status: SIGNED Entered: 05/19/20191843 IMPRESSION: No acute cardiopulmonary disease. Impression By: Dena - ALTAGRACIA SALGADO M.D. Lab Imaging Statement Laboratory radiographic studies reviewed and considered in the medical decision-making. ECG #1 Interpretation Text/Dict Note Brenda: 152 ms QRSd: 70 ms Date 05/19/19 Time 181 Interpreted by ED physician NL ECG Interpretation Normal sinus rhythm, No STEMI Rate 115 Portions of this section were scribed by Kraig Barrera on 05/19/19 at 2131 Re-Evaluation MDM Re-Evaluation/Progress #1 Text/Dict Note Pt is feeling much better. Will order a second troponin due to risk factors. Time of Re-Eval 2043 Re-Eval Status Improved Exam Post Tx - General Alert, Appears well, Vital signs stable Chest Pain MDM Note The patient is resting comfortably and feels better, is alert and in no distress. The repeat examination is unremarkable and benign. The electrocardiogram shows no signs of acute ischemia and the history, exam, diagnostic testing and current condition do not suggest that this patient is having an acute myocardial infarction, significant arrhythmia, unstable angina, esophageal perforation, pulmonary embolism, aortic dissection, pneumothorax, severe pneumonia, sepsis or other significant pathology that would warrant further testing, continued ED treatment, admission, or cardiology or other specialist consultation at this point. The vital signs have been stable. The patient's condition is stable and appropriate for discharge. The patient will pursue further outpatient evaluation with the primary care physician, other designated physician or transport operations inspector. The patient and/or caregivers have expressed a clear and thorough understanding and agree to follow up as instructed. Re-Evaluation/Progress #2 Text/Dict Note Pt still feeling better. Second troponin is negative. ACS is unlikely. Pt will f /u with her PCP for further evaluation. Time of Eval 2131 Re-Eval Status Improved ED Course Medication(s) Ordered Medication(s) Ordered: Central Nervous System Agents Sig/Ning Start time Last Medication Dose Route Stop Time Status Admin Aspirin 325 MG X1ED STA 05/19 1839 DC 05/19 PO 05/19 Lorazepam 0.5 MG X1ED STA 05/19 1839 DC 05/19 IV 05/19 Portions of this section were scribed by Kraig Barrera on 05/19/19 at 0 Patient Discharge Departure Vital Signs/Condition Vital Signs First Documented: Result Date Time Pulse Ox 99 05/19 1808 B/P 203/107 05/19 1808 B/P Mean 139 05/19 1808 O2 Delivery Room air 05/19 1808 Temp 37.0 05/19 1808 Pulse 112 05/19 1808 Resp 22 05/19 1808 Last Documented: Result Date Time Pulse Ox 98 05/19 2139 B/P 147/72 05/19 2139 B/P Mean 97 05/19 2139 Temp 36.9 05/19 2139 Pulse 89 05/19 2139 Resp 16 05/19 2139 O2 Delivery Room air 05/19 1808 All vital signs available at the time of this entry have been reviewed. Condition Improved Clinical Impression Clinical Impression Primary Impression: Chest pain Disposition Decision Discharge )( Discharged to Home Yes )( Time 2130 )( Date 05/19/19 Discharge/Care Plan Counseled Regarding Diagnosis, Lab results, Imaging studies, Need for admission Admit Note I have spoken with the patient and/or caregivers. I have explained the patient's condition, diagnoses and treatment plan based on the information available to me at this time. I have answered the patient's and/or caregiver's questions and addressed any concerns. The patient and/or caregivers have as good an understanding of the patient's diagnosis, condition and treatment plan as can be expected at this point. The patient has been stabilized within the capability of the emergency department. The patient will be transported for further care and management or will be moved to an observation or inpatient service. I have communicated with the staff or medical practitioner taking over this patient's care. Supervising Physician Note Scribe Statement Kraig Barrera, 05/19/191855, scribing for and in the presence of [Dr. Aguirre] . Signed By: Kraig Barrera, 05/19/191855 Provider Scribed Statement I personally performed the services described in this documentation and reviewed the documentation that was dictated to the scribe(s) in my presence, and it accurately records my words and actions. Mahendra Aguirre, 05/19/19 Portions of this section were scribed by Kraig Barrera on 05/19/19 at 2132 at 2145 [facility] #:[id number] END OF [id number] 16:49:00 [facility] ([facility]) EMERGENCY PROVIDER REPORT REPORT#:[id number] REPORT STATUS: Signed DATE:08/27/18 TIME: 1648 PATIENT: SUZI BANSAL UNIT #: [id number] ROOM/BED: AGE: 48 SEX: F PCP PHYS: Cam Martines SERVICE AUTHOR: Kraig Neves [employer] * ALL edits or amendments must be made on the electronic/computer document * HPI-Foot Prob/Inj General Initial Greet Date/Time 08/27/18 1454 Presentation Chief Complaint Foot injury L, Foot pain L Hx Obtained From Patient Onset Occurred Yesterday Free Text HPI Notes Free Text HPI Notes This is a 48 year old female that presents to the ER with left foot pain after a mirror in its frame fell on the top of her foot yesterday. She states that the mirror did not break when it hit her. She felt pain and noticed swelling this morning as well. The pain and swelling increased and she came in for evaluation. Review of Systems ROS Statements All systems rev neg except as marked. Basic Review of Systems Basic ROS EYES: No redness, ENT: No sore throat, RESP: No SOB, CV: No chest pain , GI: No abd pain/vomiting, : No dysuria/frequency, HEM: No bleeding/bruising, PSYCH: NL thought content Focused Review of Systems Musculoskeletal Reports: Extremity pain, Extremity swelling. Past Medical History - Adult Stated Complaint C/O LF FOOT PAIN AFTER A MIRROR FELL ON TOP YEST Allergies Coded Allergies: No Known Allergies (04/02/14) Home Medications Reported Medications Unable to Obtain Home Medication History Past Medical History: Reports: Diabetes mellitus, Hypertension, Dyslipidemia. Past Surgical History: Reports: , Hysterectomy. Drug Use Denies recreational drugs Smoking status for patients 13 years old or older: Never Smoker Other Social History Primary family support, Local resident, Good social support Physical Exam Vital Signs Vital Signs First Documented: Result Date Time Pulse Ox 100 08/27 144 B/P 165/86 08/27 1447 B/P Mean 112 08/27 1447 O2 Delivery Room air 08/27 1446 Temp 98.5 08/27 144 Pulse 100 08/27 1447 Resp 18 08/27 1447 Last Documented: Result Date Time Pulse Ox 100 08/27 1447 B/P 165/86 08/27 1447 B/P Mean 112 08/27 1447 O2 Delivery Room air 08/27 144 Temp 98.5 08/27 1447 Pulse 100 08/27 1447 Resp 18 08/27 144 Review of Vital Signs Reviewed Basic Physical Exam Basic PE GEN: Well appearing/NAD, HEAD: Atraumatic/NC, EYES: PERRL, conj clear, ENT: Membranes moist, NECK: Supple, RESP: No resp distress, CV: Reg rate rhythm, ABD: Soft/non-tender, UP EXT: No gross abnormal, SKIN: No rashes, warm/ dry, NEURO: alert oriented, NEURO: gross movement NL, PSYCH: NL thought content Focused PE General/Const General/Const Awake, Alert, No acute distress, Well appearing, Well developed , Well hydrated, Well nourished, Cooperative MS Ankle/Foot Left Foot Swelling present, Tenderness present. Negative: Tender base 5th mtarsal, Tender calcaneus, Tender plantar fascia, Ecchymosis present, Erythema present, Warmth present, ROM reduced, Joint effusion present, Tendon injury extensor, Tendon injury flexor, Deformity present, Open fracture present, Pulse dorsalis ped absent, Pulse dors ped decreased, Neuro deficit present, Amputation. Neurologic Neurologic Oriented X3, Speech NL, No motor deficits, No sensory deficits, CN II - XII intact Interpretation Diagnostics Lab Results Interpretation Results Recent Impressions: RADIOLOGY - XR FOOT 2 VIEWS LT 08/27 1607 Report Impression - Status: SIGNED Entered: 08/27/2018 1629 IMPRESSION: No acute osseous abnormality of the left foot. Impression By: Mason BALDWIN M.D. Re-Evaluation MDM Free Text MDM Notes Free Text MDM Notes Patient with negative Xray of the foot and will follow up with PCP and take motrin and tylenol for pain and inflamation. ED Course Medication(s) Ordered Medication(s) Ordered: Central Nervous System Agents Sig/Ning Start time Last Medication Dose Route Stop Time Status Admin Ketorolac 30 MG X1ED STA 08/27 161 DC Tromethamine IM 08/27 161 Patient Discharge Departure Vital Signs/Condition Vital Signs First Documented: Result Date Time Pulse Ox 100 08/27 1447 B/P 165/86 08/27 1447 B/P Mean 112 08/27 1447 O2 Delivery Room air 08/27 1446 Temp 98.5 08/27 144 Pulse 100 08/27 1447 Resp 18 08/27 144 Last Documented: Result Date Time Pulse Ox 100 08/27 1447 B/P 165/86 08/27 1447 B/P Mean 112 08/27 1447 O2 Delivery Room air 08/27 144 Temp 98.5 08/27 1447 Pulse 100 08/27 1447 Resp 18 08/27 144 All vital signs available at the time of this entry have been reviewed. Clinical Impression Clinical Impression Primary Impression: Contusion of left foot Secondary Impressions: Left foot pain, Swelling of left foot Disposition Decision Discharge )( Discharged to Home Yes )( Time 1632 )( Date 08/27/18 Discharge/Care Plan Counseled Regarding Diagnosis, Imaging studies, Prescriptions, Need for follow- up, When to return to ED Prescriptions Motrin Prescriptions Reviewed Risks, Benefits Discharge Note I have spoken with the patient and/or caregivers. I have explained the patient's condition, diagnoses and treatment plan based on the information available to me at this time. I have answered the patient's and/or caregiver's questions and addressed any concerns. The patient and/or caregivers have as good an understanding of the patient's diagnosis, condition and treatment plan as can be expected at this point. The vital signs have been stable. The patient's condition is stable and appropriate for discharge from the emergency department. The patient will pursue further outpatient evaluation with the primary care physician or other designated or consulting physician as outlined in the discharge instructions. The patient and/or caregivers are agreeable to this plan of care and follow-up instructions have been explained in detail. The patient and/or caregivers have received these instructions in written format and have expressed an understanding of the discharge instructions. The patient and/or caregivers are aware that any significant change in condition or worsening of symptoms should prompt an immediate return to this or the closest emergency department or a call to 911. Quality Measures BP F/U for HTN F/u with PCP/other doc, Pre-existing HTN at 1702 RPT #:[id number] END OF [id number] 16:49:00 [facility] ([facility]) EMERGENCY PROVIDER REPORT REPORT#:[id number] REPORT STATUS: Signed DATE:08/27/18 TIME: 1648 PATIENT: SUZI BANSAL UNIT #: [id number] ROOM/BED: AGE: 48 SEX: F PCP PHYS: Cam Martines SERVICE AUTHOR: Kraig Neves NP * ALL edits or amendments must be made on the electronic/computer document * Kraig Neves 08/27/18 1649: HPI-Foot Prob/Inj Presentation Chief Complaint Foot injury L, Foot pain L Hx Obtained From Patient Onset Occurred Yesterday Free Text HPI Notes Free Text HPI Notes This is a 48 year old female that presents to the ER with left foot pain after a mirror in its frame fell on the top of her foot yesterday. She states that the mirror did not break when it hit her. She felt pain and noticed swelling this morning as well. The pain and swelling increased and she came in for evaluation. Review of Systems ROS Statements All systems rev neg except as marked. Basic Review of Systems Basic ROS EYES: No redness, ENT: No sore throat, RESP: No SOB, CV: No chest pain , GI: No abd pain/vomiting, : No dysuria/frequency, HEM: No bleeding/bruising, PSYCH: NL thought content Focused Review of Systems Musculoskeletal Reports: Extremity pain, Extremity swelling. Past Medical History - Adult Stated Complaint C/O LF FOOT PAIN AFTER A MIRROR FELL ON TOP YEST Allergies Coded Allergies: No Known Allergies (04/02/14) Home Medications Reported Medications Unable to Obtain Home Medication History Past Medical History: Reports: Diabetes mellitus, Hypertension, Dyslipidemia. Past Surgical History: Reports: , Hysterectomy. Drug Use Denies recreational drugs Smoking status for patients 13 years old or older: Never Smoker Other Social History Primary family support, Local resident, Good social support Physical Exam Vital Signs Vital Signs First Documented: Result Date Time Pulse Ox 100 08/27 1447 B/P 165/86 08/27 1447 B/P Mean 112 08/27 1447 O2 Delivery Room air 08/27 1446 Temp 36.9 08/27 1447 Pulse 100 08/27 1447 Resp 18 08/27 1446 Last Documented: Result Date Time Pulse Ox 100 08/27 1447 B/P 165/86 08/27 1447 B/P Mean 112 08/27 1447 O2 Delivery Room air 08/27 1446 Temp 36.9 08/27 144 Pulse 100 08/27 1447 Resp 18 08/27 1446 Review of Vital Signs Reviewed Basic Physical Exam Basic PE GEN: Well appearing/NAD, HEAD: Atraumatic/NC, EYES: PERRL, conj clear, ENT: Membranes moist, NECK: Supple, RESP: No resp distress, CV: Reg rate rhythm, ABD: Soft/non-tender, UP EXT: No gross abnormal, SKIN: No rashes, warm/ dry, NEURO: alert oriented, NEURO: gross movement NL, PSYCH: NL thought content Focused PE General/Const General/Const Awake, Alert, No acute distress, Well appearing, Well developed , Well hydrated, Well nourished, Cooperative MS Ankle/Foot Left Foot Swelling present, Tenderness present. Negative: Tender base 5th mtarsal, Tender calcaneus, Tender plantar fascia, Ecchymosis present, Erythema present, Warmth present, ROM reduced, Joint effusion present, Tendon injury extensor, Tendon injury flexor, Deformity present, Open fracture present, Pulse dorsalis ped absent, Pulse dors ped decreased, Neuro deficit present, Amputation. Neurologic Neurologic Oriented X3, Speech NL, No motor deficits, No sensory deficits, CN II - XII intact Interpretation Diagnostics Lab Results Interpretation Results Recent Impressions: RADIOLOGY - XR FOOT 2 VIEWS LT 08/27 1607 Report Impression - Status: SIGNED Entered: 08/27/2018 1629 IMPRESSION: No acute osseous abnormality of the left foot. Impression By: Mason BALDWIN M.D. Re-Evaluation MDM Free Text MDM Notes Free Text MDM Notes Patient with negative Xray of the foot and will follow up with PCP and take motrin and tylenol for pain and inflamation. ED Course Medication(s) Ordered Medication(s) Ordered: Cardiovascular Drugs Sig/Ning Start time Last Medication Dose Route Stop Time Status Admin Hydralazine HCl 10 MG Q2H PRN PRN 09/01 1245 AC IV 10/01 1244 Central Nervous System Agents Sig/Ning Start time Last Medication Dose Route Stop Time Status Admin Acetaminophen 650 MG Q4H PRN PRN 09/01 1245 AC PO 10/01 1244 Gastrointestinal Drugs Sig/Ning Start time Last Medication Dose Route Stop Time Status Admin Ondansetron HCl 4 MG Q8H PRN PRN 09/01 1245 AC IV 10/01 1244 Patient Discharge Departure Vital Signs/Condition Vital Signs First Documented: Result Date Time Pulse Ox 100 08/27 1447 B/P 165/86 08/27 1447 B/P Mean 112 08/27 1447 O2 Delivery Room air 08/27 144 Temp 36.9 08/27 1447 Pulse 100 08/27 1447 Resp 18 08/27 1447 Last Documented: Result Date Time Pulse Ox 100 08/27 1447 B/P 165/86 08/27 1447 B/P Mean 112 08/27 1447 O2 Delivery Room air 08/27 144 Temp 36.9 08/27 1447 Pulse 100 08/27 1447 Resp 18 08/27 1447 All vital signs available at the time of this entry have been reviewed. Clinical Impression Clinical Impression Primary Impression: Contusion of left foot Secondary Impressions: Left foot pain, Swelling of left foot Disposition Decision Discharge )( Discharged to Home Yes )( Time 1632 )( Date 08/27/18 Discharge/Care Plan Counseled Regarding Diagnosis, Imaging studies, Prescriptions, Need for follow- up, When to return to ED Prescriptions Motrin Prescriptions Reviewed Risks, Benefits Discharge Note I have spoken with the patient and/or caregivers. I have explained the patient's condition, diagnoses and treatment plan based on the information available to me at this time. I have answered the patient's and/or caregiver's questions and addressed any concerns. The patient and/or caregivers have as good an understanding of the patient's diagnosis, condition and treatment plan as can be expected at this point. The vital signs have been stable. The patient's condition is stable and appropriate for discharge from the emergency department. The patient will pursue further outpatient evaluation with the primary care physician or other designated or consulting physician as outlined in the discharge instructions. The patient and/or caregivers are agreeable to this plan of care and follow-up instructions have been explained in detail. The patient and/or caregivers have received these instructions in written format and have expressed an understanding of the discharge instructions. The patient and/or caregivers are aware that any significant change in condition or worsening of symptoms should prompt an immediate return to this or the closest emergency department or a call to 911. Quality Measures BP F/U for HTN F/u with PCP/other doc, Pre-existing HTN Jason Dubose 09/06/18 1336: HPI-Foot Prob/Inj General Initial Greet Date/Time 08/27/18 1454 Physical Exam Vital Signs Vital Signs Interpretation Diagnostics Lab Results Interpretation Results Re-Evaluation MDM ED Course Medication(s) Ordered Patient Discharge Departure Vital Signs/Condition Vital Signs Supervising Physician Note MidLv Saw Pt Alone I have reviewed the PA/SUPERVISOR [employer] DEPARTMENT's note and plan of care. I was available for consultation as needed at all times during the patient's visit in the emergency department. I agree with the clinical impression, plan and disposition. at 1702 at 1337 RPT #:[id number] END OF REPORTHCAVA
[2024-08-25] MEDS ORDERED: ONDANSETRON 4 MG/2 ML VIAL ONE (03:23)
[2024-08-25] MEDS ORDERED: CEFTRIAXONE 1000 MG/VIAL ONE (03:23)
[2024-08-25] MEDS ORDERED: METOCLOPRAMIDE 10 MG/2mL INJ ONE (03:24)
[2024-08-25] MEDS ORDERED: KETOROLAC 30 MG/ML INJ ONE (03:24)
[2024-08-25] MEDS ORDERED: NA CHLORIDE 0.9% 2,000 ML ONE (03:24)
[2024-08-25] MEDS ORDERED: ACETAMINOPHEN 500 MG TAB ONE ×2 (03:24→07:01)
[2024-08-25] MEDS ORDERED: MORPHINE 4 MG/ML SYR ONE (03:24)
[2024-08-25] MEDS ORDERED: FAMOTIDINE 20 MG/2 ML VIAL IV ONE (03:24)
[2024-08-25] MEDS ORDERED: METRONIDAZOLE 500mg IVPB 500 MG/100 ML BAG IV ONE (03:25)
[2024-08-25] MEDS ORDERED: NA CHLORIDE 0.9% 50 ML ONE (03:25)
[2024-08-25 03:32] LABS: Absolute Basophils 0.1 K/uL (0-0.5); Absolute Lymphocytes (CBC) 0.8 K/uL (0.7-4.9); Absolute Monocytes 0.8 K/uL (0.1-1.3); Absolute Neutrophil 10.7 K/uL (1.8-8.0); Basophils % 0.5 % (0-1.3); Eosinophils % 0.1 % (0-4.4); Hematocrit 37.3 % (36.0-45.0); Lymphocytes % 6.1 % (15.3-44.8); MCH 30.2 pg (27.0-35.0); MCHC 34.9 g/dL (32.0-36.0); MCV 86.4 fL (80-100); MPV 8.2 fL (7.6-11.3); Monocytes % 6.4 % (3.3-12.3); Neutrophils % 86.9 % (41.7-73.7); Platelets 229 thou/uL (152-406); RBC Red Blood Cell Count 4.32 M/uL (3.86-4.86)
[2024-08-25 03:36] LABS: PT Prothrombin Time 13.8 SECONDS (10-13.0); Protime INR 1.22
[2024-08-25 03:43] LABS: Influenza A Ag Negative; Influenza B Ag Negative; SARS-CoV-2 Antigen Rapid Res Negative (Negative)
[2024-08-25 03:47] LABS: ALT/SGPT 35 U/L (13-56); Albumin 3.6 g/dL (3.4-5.0); Albumin/Globulin Ratio 1.1 (1.1-1.8); Alkaline Phosphatase 96 U/L (45-117); BUN Blood Urea Nitrogen 13 mg/dL (7-18); Bicarbonate 24 mEq/L (21-32); Bilirubin Total 1.1 mg/dL (0.2-1.0); Globulin 3.3 g/dL (2.3-3.5); Glomerular Filtration Rate 85 ml/min (=/>90); Glucose Level 340 mg/dL (74-106); Lipase 16 U/L (13-75); Protein, Total 6.9 g/dL (6.4-8.2); Sodium Level 134 mEq/L (136-145)
[2024-08-25 03:53] LABS: AST/SGOT < 10 U/L (15-37); C-Reactive Protein 89.5 mg/L (<3.00); Thyroid Stimulating Hormone 0.575 uIU/mL (0.358-3.740)
[2024-08-25 04:05] LABS: Specific Gravity 1.024 (1.005-1.030); Sqamous Epithelial <5 /HPF (None Seen); Urine Bacteria <20 /HPF (<20); Urine Bilirubin NEGATIVE (Negative); Urine Blood 1+ (Negative); Urine Clarity Turbid (Clear); Urine Color Light-Yellow (Yellow); Urine Culture Reflex Order REFLEXED; Urine Glucose 4+ (Over) (Negative); Urine Ketones 2+ (Negative); Urine Microscopic Reflex YN ORDER UMIC; Urine Mucus Slight /HPF (None Seen); Urine Nitrite NEGATIVE (Negative); Urine Protein TRACE (Negative); Urine RBC <5 /HPF (None Seen); Urine Urobilinogen Normal (Normal); Urine WBC 20-50 /HPF (<5); Urine WBC Clump Occasional /HPF (None Seen)
[2024-08-25] MEDS ORDERED: POTASSIUM 25 MEQ EFFERV TAB ONE (04:35)
[2024-08-25] MEDS ORDERED: NA CHLORIDE 0.9% 1,000 ML ONE (04:36)
--- NOTE | 2024-08-25 06:32 | ER ---
Nurse's Notes [facility] Name: Kori Harmon Age: 54 yrs Sex: Female : 1970 Arrival Date: 08/25/2024 Time: 02:47 Bed 17 Private MD: Diagnosis: Pyelonephritis acute;Severe sepsis without septic shock;Moderate dehydration, diabetes mellitus type II with acute hyperglycemia Presentation: 08/25 02:57 Chief complaint: EMS states: c/o L sided abdominal pain since 08/23, felt good all day al5 yesterday, then started to feel it again at about 0000 tonight. with ems patient has fever of 103. Coronavirus screen: At this time, the client does not indicate any symptoms associated with coronavirus-19. Ebola Screen: No symptoms or risks identified at this time. Initial Sepsis Screen: Does the patient meet any 2 criteria? Temp <36.0*C (96.8*F)) or > 38.3*C (100.9*F). HR > 90 bpm. Yes Does the patient have a suspected source of infection? No. Patient's initial sepsis screen is negative. Risk Assessment: Do you want to hurt yourself or someone else? Patient reports no desire to harm self or others. Onset of symptoms was August 23, 2024. 02:57 Method Of Arrival: EMS: [facility] al5 02:57 Acuity: FRANCHESCA 3 al5 02:57 Care prior to arrival: Medication(s) given: Normal saline infusion, 500 mL, zofran 4 al5 mg, IV initiated. 20 GA, in the left forearm, Glucose check: 356. Triage Assessment: 03:01 General: Appears in no apparent distress. uncomfortable, Behavior is calm, cooperative. al5 Pain: Complains of pain in left upper quadrant and left lower quadrant. EENT: No signs and/or symptoms were reported regarding the EENT system. Neuro: Level of Consciousness is awake, alert, obeys commands, Oriented to person, place, time, situation. Cardiovascular: Capillary refill < 3 seconds Patient's skin is warm and dry. Rhythm is sinus tachycardia. Respiratory: Airway is patent Respiratory effort is even, unlabored, Respiratory pattern is regular, symmetrical. GI: Abdomen is non-distended, Abd is soft X 4 quads Abdomen is tender to palpation in left upper quadrant and left lower quadrant Reports lower abdominal pain, upper abdominal pain, nausea, vomiting. : No signs and/or symptoms were reported regarding the genitourinary system. Derm: Skin is intact, is healthy with good turgor, Skin is pink, warm \T\ dry. normal. Musculoskeletal: No signs and/or symptoms reported regarding the musculoskeletal system. Historical: - Allergies: 03:00 No Known Allergies; al5 - PMHx: 03:00 Diabetes mellitus; al5 - PSHx: 03:00 section; hysterectomy; al5 - Immunization history:: Adult Immunizations up to date. - Infectious Disease History:: Denies. - Social history:: Smoking status: Patient denies any tobacco usage or history of. - Family history:: not pertinent. Screenin:03 [facility] ED Fall Risk Assessment (Adult) History of falling in the last 3 months, al5 including since admission No falls in past 3 months (0 pts) Confusion or Disorientation No (0 pts) Intoxicated or Sedated No (0 pts) Impaired Gait No (0 pts) Mobility Assist Device Used No (0 pt) Altered Elimination No (0 pt) Score/Fall Risk Level 0 - 2 = Low Risk Oriented to surroundings, Maintained a safe environment, Hourly rounding (assess needs \T\ fall precautionary measures) done. Abuse screen: Denies threats or abuse. Denies injuries from another. Nutritional screening: No deficits noted. Tuberculosis screening: No symptoms or risk factors identified. Assessment: 03:02 Reassessment: see triage assessment. GI: Bowel sounds present X 4 quads. Abd is soft X al5 4 quads Abdomen is tender to palpation in left upper quadrant and left lower quadrant. 04:11 Reassessment: Patient appears in no apparent distress at this time. Patient and/or al5 family updated on plan of care and expected duration. Pain level reassessed. Patient is alert, oriented x 3, equal unlabored respirations, skin warm/dry/pink. nausea and pain decreased. 05:05 Reassessment: Patient appears in no apparent distress at this time. No changes from kd3 previously documented assessment. Patient and/or family updated on plan of care and expected duration. Pain level reassessed. Patient is alert, oriented x 3, equal unlabored respirations, skin warm/dry/pink. Vital Signs: 02:57 BP 137 / 70; Pulse 129; Resp 16; Temp 102; Pulse Ox 92% on R/A; Weight 84.82 kg; Height al5 5 ft. 6 in. ; 03:30 BP 132 / 77; Pulse 123; Resp 23; Pulse Ox 93% on R/A; kd3 04:00 BP 116 / 71; Pulse 120; Resp 18; Pulse Ox 93% ; kd3 04:33 BP 119 / 64; Pulse 115; Resp 20; Pulse Ox 93% on R/A; kd3 05:00 BP 116 / 74; Pulse 107; Resp 19; Pulse Ox 96% ; kd3 05:30 BP 114 / 72; Pulse 103; Resp 18; Pulse Ox 95% ; al5 05:36 Temp 99.1; kd3 06:00 BP 131 / 75; Pulse 98; Resp 19; Pulse Ox 94% ; al5 06:30 BP 140 / 85; Pulse 99; Resp 18; Pulse Ox 95% ; al5 02:57 Body Mass Index 30.18 (84.82 kg, 167.64 cm) al5 Terry Coma Score: 03:57 Eye Response: spontaneous(4). Motor Response: obeys commands(6). Verbal Response: sp4 oriented(5). Total: 15. ED Course: 02:50 Patient arrived in ED. jj6 02:57 Annie Almanza RN is Primary Nurse. al5 03:00 Triage completed. al5 03:02 Duong Vaughn MD is Attending Physician. sp4 03:02 Arm band placed on right wrist. Patient placed in the treatment room, in view of staff al5 members, on color television console monitor, on pulse oximetry. 03:04 Patient has correct armband on for positive identification. Bed in low position. Call al5 light in reach. Side rails up X2. Provided Education on: plan of care. 03:04 No provider procedures requiring assistance completed. Maintain EMS IV. Dressing al5 intact. Good blood return noted. Site clean \T\ dry. Gauge \T\ site: 20G LFA. Flushed with 10 mL NS. 03:30 T4 Free Sent. mm11 03:30 TSH Sent. mm11 03:30 CRP Sent. mm11 03:30 Lactate w/ 2H reflex if indic. Sent. mm11 03:30 Troponin High Sensitivity Sent. mm11 03:30 Procalcitonin Sent. mm11 03:30 Blood Culture Adult (2) Sent. mm11 03:30 PT-INR Sent. mm11 03:31 CBC with Diff Sent. mm11 03:31 CMP Sent. mm11 03:31 Lipase Sent. mm11 03:31 COVID-19 Ag + Flu A+B Ag Sent. mm11 03:31 Inserted saline lock: 20 gauge in right antecubital area, using aseptic technique. mm11 Blood collected. Flushed with 10 mL NS. 03:31 EKG done, by ED staff, reviewed by Duong Vaughn MD. mm11 03:43 Urinalysis w/ reflexes Sent. mm11 04:28 CT Chest, Abdomen, Pelvis - W/Contrast In Process Unspecified. EDMS 06:30 Shirley Saleem MD is Hospitalizing Provider. sp4 09:17 Patient admitted, IV remains in place. ld1 Administered Medications: 03:44 Drug: NS 0.9% IV 1000 ml IV at 1000 ml once; to be given as a bolus over 60 minutes al5 Route: IV; Rate: 1000 ml; Site: right antecubital; 05:36 Follow up: Response: No adverse reaction; IV Status: Completed infusion; IV Intake: kd3 1000ml 03:44 Drug: Rocephin - Rocephin (cefTRIAXone) IVPB 1 grams IVPB once over 30 mins; (mix in 50 al5 mL NS) Route: IVPB; Infused Over: 30 mins; Site: right antecubital; 03:45 Drug: Famotidine IVP 20 mg IVP once; dilute with 10 mL 0.9% NaCl; give over 2 minutes al5 Route: IVP; Site: left forearm; 05:36 Follow up: Response: No adverse reaction kd3 03:45 Drug: TORadol - Ketorolac IVP 15 mg IVP once Route: IVP; Site: left forearm; al5 05:36 Follow up: Response: No adverse reaction; Pain is decreased kd3 03:45 Drug: Ondansetron IVP 4 mg IVP once; over 2 minutes Route: IVP; Site: left forearm; al5 05:37 Follow up: Response: No adverse reaction; Nausea is decreased kd3 03:45 Drug: morphine IVP or IV 4 mg IVP once over 4 mins Route: IVP; Infused Over: 4 mins; al5 Site: left forearm; 05:36 Follow up: Response: No adverse reaction; Pain is decreased kd3 03:45 Drug: NS 0.9% IV 1000 ml IV at 1 bolus Per protocol; to be given as a bolus over 60 al5 minutes Route: IV; Rate: 1 bolus; Site: right antecubital; 05:37 Follow up: Response: No adverse reaction; IV Status: Completed infusion; IV Intake: kd3 1000ml 03:45 Drug: Acetaminophen PO 1000 mg PO once Route: PO; al5 05:36 Follow up: Temp 99.1; Response: No adverse reaction kd3 03:45 Drug: metoCLOPramide IVP 10 mg IVP once; over 1 to 2 minutes Route: IVP; Site: left al5 forearm; 05:35 Follow up: Response: No adverse reaction; Nausea is decreased kd3 03:57 Drug: metroNIDAZOLE IVPB 500 mg 100 ml IVPB at 200 ml/hr once over 30 mins Volume: 100 al5 ml; Route: IVPB; Rate: 200 ml/hr; Infused Over: 30 mins; Site: right antecubital; 04:44 Drug: NS 0.9% IV 1000 ml IV at 1 bolus Per protocol; to be given as a bolus over 60 al5 minutes Route: IV; Rate: 1 bolus; Site: left forearm; 04:45 Drug: Potassium PO Effervescent Tablet 50 mEq PO once; dissolve in 4 ounces of water or al5 juice Route: PO; 05:35 Follow up: Response: No adverse reaction kd3 07:04 Drug: Acetaminophen PO 1000 mg PO once Route: PO; al5 Medication: 03:03 VIS not applicable for this client. al5 Intake: 05:36 IV: 1000ml; Total: 1000ml. kd3 05:37 IV: 1000ml; Total: 2000ml. kd3 Outcome: 06:31 Decision to Hospitalize by Provider. sp4 09:17 Admitted to Med/surg accompanied by tech, via wheelchair, ld1 09:17 Condition: stable 09:17 Instructed on the need for admit, 09:17 Patient left the ED. ld1 Signatures: Dispatcher [facility] EDJusta Galeas RN RN ld1 Ashli Britoj6 Kourtney Youssef RN RN kd3 Duong Vaughn MD MD sp4 Annie Almanza RN RN al5 juan thornton mm11 Corrections: (The following items were deleted from the chart) 03:01 03:00 PSHx: Total abdominal hysterectomy; al5 al5
--- NOTE | 2024-08-25 06:32 | EDPHYS ---
Physician Documentation [facility] Name: Kori Harmon Age: 54 yrs Sex: Female : 1970 Arrival Date: 08/25/2024 Time: 02:47 Bed 17 Private MD: ED Physician Duong Vaughn HPI: 08/25 03:02 This 54 yrs old Female presents to ER via EMS with complaints of Fever, sp4 Abdominal Pain. 03:51 54-year-old female presents with acute onset of nausea vomiting abdominal pain and sp4 fever starting yesterday. Patient reports temperature at home last night associated with vomiting headache chills and bodyaches and abdominal pain left lower quadrant. Patient has history of hysterectomy and prior . . History of diabetes mellitus type 2.. Historical: - Allergies: 03:00 No Known Allergies; al5 - PMHx: 03:00 Diabetes mellitus; al5 - PSHx: 03:00 section; hysterectomy; al5 - Immunization history:: Adult Immunizations up to date. - Infectious Disease History:: Denies. - Social history:: Smoking status: Patient denies any tobacco usage or history of. - Family history:: not pertinent. ROS: 03:57 Constitutional: Positive for fever, positive body aches positive abdominal pain sp4 positive vomiting 03:57 All other systems are negative, Exam: 03:57 Constitutional: Patient is febrile tachycardic ill-appearing but nontoxic Head/Face: sp4 Normocephalic, atraumatic. Eyes: Pupils equal round and reactive to light, extra-ocular motions intact. Lids and lashes normal. Conjunctiva and sclera are not injected. Cornea within normal limits. Periorbital areas with no swelling, redness, or edema. ENT: Nares patent. No nasal discharge, no septal abnormalities noted. Tympanic membranes are normal and external auditory canals are clear. Oropharynx with no redness, swelling, or masses, exudates, or evidence of obstruction, uvula midline. Mucous membranes moist. Neck: Trachea midline, no thyromegaly or masses palpated, and no cervical lymphadenopathy. Supple, full range of motion without nuchal rigidity, or vertebral point tenderness. Chest/axilla: Normal chest wall appearance and motion. Nontender with no deformity. No lesions are appreciated. Cardiovascular: Regular rate and rhythm with a normal S1 and S2. No gallops, murmurs, or rubs. Normal PMI, no JVD. No pulse deficits. Respiratory: Lungs have equal breath sounds bilaterally, clear to auscultation and percussion. No rales, rhonchi or wheezes noted. No increased work of breathing, no retractions or nasal flaring. Abdomen/GI: Soft, with normal bowel sounds. No distension or tympany. No guarding or rebound. No evidence of tenderness throughout. Back: No spinal tenderness. No costovertebral tenderness. Skin: Warm, dry with normal turgor. Normal color with no rashes, no lesions, and no evidence of cellulitis. MS/ Extremity: Pulses equal, no cyanosis. Neurovascular intact. Full, normal range of motion. Neuro: Awake and alert, GCS 15, oriented to person, place, time, and situation. Cranial nerves II-XII grossly intact. Motor strength 5/5 in all extremities. Sensory grossly intact. Psych: Awake, alert, with orientation to person, place and time. Behavior, mood, and affect are within normal limits 03:57 ECG was reviewed by the Attending Physician. EKG 0 327 sinus tachycardia rate 120 Vital Signs: 02:57 BP 137 / 70; Pulse 129; Resp 16; Temp 102; Pulse Ox 92% on R/A; Weight 84.82 kg; Height al5 5 ft. 6 in. ; 03:30 BP 132 / 77; Pulse 123; Resp 23; Pulse Ox 93% on R/A; kd3 04:00 BP 116 / 71; Pulse 120; Resp 18; Pulse Ox 93% ; kd3 04:33 BP 119 / 64; Pulse 115; Resp 20; Pulse Ox 93% on R/A; kd3 05:00 BP 116 / 74; Pulse 107; Resp 19; Pulse Ox 96% ; kd3 05:30 BP 114 / 72; Pulse 103; Resp 18; Pulse Ox 95% ; al5 05:36 Temp 99.1; kd3 06:00 BP 131 / 75; Pulse 98; Resp 19; Pulse Ox 94% ; al5 06:30 BP 140 / 85; Pulse 99; Resp 18; Pulse Ox 95% ; al5 02:57 Body Mass Index 30.18 (84.82 kg, 167.64 cm) al5 [place] Coma Score: 03:57 Eye Response: spontaneous(4). Motor Response: obeys commands(6). Verbal Response: sp4 oriented(5). Total: 15. MDM: 03:04 Medical Screening Exam initiated sp4 06:24 ED course: COMPARISON: No relevant prior studies available. FINDINGS: CHEST: Lungs: sp4 Unremarkable. No mass. No consolidation. Pleural space: Unremarkable. No significant effusion. No pneumothorax. Heart: Unremarkable. No cardiomegaly. No significant pericardial effusion. No significant coronary artery calcifications. ABDOMEN: Liver: Hepatosplenomegaly. Gallbladder and bile ducts: Unremarkable. No calcified stones. No ductal dilation. Pancreas: Unremarkable. No ductal dilation. No mass. Spleen: See above. Adrenals: Unremarkable. No mass. Kidneys and ureters: Mild left hydroureter and perinephric/periureteral stranding. No solid mass. Stomach and bowel: Scattered colonic diverticula. No obstruction. No mucosal thickening. PELVIS: Appendix: No findings to suggest acute appendicitis. Bladder: Unremarkable. No mass. Reproductive: Unremarkable as visualized. CHEST, ABDOMEN and PELVIS: Intraperitoneal space: Unremarkable. No significant fluid collection. No free air. Bones/joints: Unremarkable. No acute fracture. No dislocation. Soft tissues: Unremarkable. Vasculature: Unremarkable. No aortic aneurysm. Lymph nodes: Unremarkable. No enlarged lymph nodes. IMPRESSION: 1. Mild left hydroureter and perinephric/periureteral stranding. Findings can be seen with infection and recent stone passage. 2. Additional non-emergent findings as above. Electronically signed by: Xander Dietrich MD 08/25/2024 06:05 AM. 06:29 Differential diagnosis: viral Infection, bacterial infection, URI, bronchitis, sp4 pneumonia UTI, gastroenteritis. Data reviewed: vital signs, nurses notes, EMS record, old medical records, lab test result(s), EKG, radiologic studies, CT scan. Consideration of Admission/Observation Patient was admitted/placed on observation. Escalation of care including admission/observation considered. Management of patient was discussed with the following: Hospitalist: Stiven STEWART . ED course: Patient CT reveals signs of pyelonephritis on the left side. Stable for admission to the hospital.. 08/25 03:03 Order name: COVID-19 Ag + Flu A+B Ag; Complete Time: 03:51 sp4 08/25 03:03 Order name: CBC with Diff; Complete Time: 03:51 sp4 08/25 03:03 Order name: CMP; Complete Time: 04:34 sp4 08/25 03:03 Order name: Lipase; Complete Time: 04:34 sp4 08/25 03:03 Order name: Urinalysis w/ reflexes; Complete Time: 04:34 sp4 08/25 03:12 Order name: PT-INR; Complete Time: 03:51 sp4 08/25 03:13 Order name: Blood Culture Adult (2) sp4 08/25 03:13 Order name: Procalcitonin; Complete Time: 04:34 sp4 08/25 03:13 Order name: Troponin High Sensitivity; Complete Time: 04:34 sp4 08/25 03:14 Order name: CRP; Complete Time: 04:34 sp4 08/25 03:14 Order name: TSH; Complete Time: 04:34 sp4 08/25 03:14 Order name: T4 Free; Complete Time: 04:34 sp4 08/25 03:21 Order name: Lactate w/ 2H reflex if indic.; Complete Time: 04:34 sp4 08/25 03:58 Order name: Ghost Lactate-NO COLLECT Timer; Complete Time: 06:27 EDMS 08/25 04:17 Order name: Urine Culture EDMS 08/25 06:24 Order name: Lactate Sepsis 2 HR Follow-up; Complete Time: 06:27 EDMS 08/25 07:25 Order name: CBC with Automated Diff EDMS 08/25 07:25 Order name: CBC with Automated Diff EDMS 08/25 07:25 Order name: CBC with Automated Diff EDMS 08/25 07:25 Order name: CBC with Automated Diff EDMS 08/25 07:25 Order name: CBC with Automated Diff EDMS 08/25 07:25 Order name: Comprehensive Metabolic Panel EDMS 08/25 07:25 Order name: Comprehensive Metabolic Panel EDMS 08/25 07:25 Order name: Comprehensive Metabolic Panel EDMS 08/25 07:25 Order name: Comprehensive Metabolic Panel EDMS 08/25 07:25 Order name: Comprehensive Metabolic Panel EDMS 08/25 08:30 Order name: Glucose, Ancillary Testing EDMS 08/25 03:03 Order name: CT Chest, Abdomen, Pelvis - W/Contrast sp4 08/25 03:13 Order name: EKG; Complete Time: 03:14 sp4 08/25 03:03 Order name: IV Saline Lock; Complete Time: : sp4 08/25 03:03 Order name: Labs collected and sent; Complete Time: sp4 08/25 03:13 Order name: EKG - Nurse/Tech; Complete Time: EC:27 Rate is 124 beats/min. Rhythm is regular, Sinus tachycardia. QRS Ronald is Normal. MT sp4 interval is normal. QRS interval is normal. QT interval is normal. No Q waves. T waves are Normal. No ST changes noted. Clinical impression: No evidence of ischemia. Interpreted by me. Reviewed by me. Administered Medications: 03:44 Drug: NS 0.9% IV 1000 ml IV at 1000 ml once; to be given as a bolus over 60 minutes al5 Route: IV; Rate: 1000 ml; Site: right antecubital; 05:36 Follow up: Response: No adverse reaction; IV Status: Completed infusion; IV Intake: kd3 1000ml 03:44 Drug: Rocephin - Rocephin (cefTRIAXone) IVPB 1 grams IVPB once over 30 mins; (mix in 50 al5 mL NS) Route: IVPB; Infused Over: 30 mins; Site: right antecubital; 03:45 Drug: Famotidine IVP 20 mg IVP once; dilute with 10 mL 0.9% NaCl; give over 2 minutes al5 Route: IVP; Site: left forearm; 05:36 Follow up: Response: No adverse reaction kd3 03:45 Drug: TORadol - Ketorolac IVP 15 mg IVP once Route: IVP; Site: left forearm; al5 05:36 Follow up: Response: No adverse reaction; Pain is decreased kd3 03:45 Drug: Ondansetron IVP 4 mg IVP once; over 2 minutes Route: IVP; Site: left forearm; al5 05:37 Follow up: Response: No adverse reaction; Nausea is decreased kd3 03:45 Drug: morphine IVP or IV 4 mg IVP once over 4 mins Route: IVP; Infused Over: 4 mins; al5 Site: left forearm; 05:36 Follow up: Response: No adverse reaction; Pain is decreased kd3 03:45 Drug: NS 0.9% IV 1000 ml IV at 1 bolus Per protocol; to be given as a bolus over 60 al5 minutes Route: IV; Rate: 1 bolus; Site: right antecubital; 05:37 Follow up: Response: No adverse reaction; IV Status: Completed infusion; IV Intake: kd3 1000ml 03:45 Drug: Acetaminophen PO 1000 mg PO once Route: PO; al5 05:36 Follow up: Temp 99.1; Response: No adverse reaction kd3 03:45 Drug: metoCLOPramide IVP 10 mg IVP once; over 1 to 2 minutes Route: IVP; Site: left al5 forearm; 05:35 Follow up: Response: No adverse reaction; Nausea is decreased kd3 03:57 Drug: metroNIDAZOLE IVPB 500 mg 100 ml IVPB at 200 ml/hr once over 30 mins Volume: 100 al5 ml; Route: IVPB; Rate: 200 ml/hr; Infused Over: 30 mins; Site: right antecubital; 04:44 Drug: NS 0.9% IV 1000 ml IV at 1 bolus Per protocol; to be given as a bolus over 60 al5 minutes Route: IV; Rate: 1 bolus; Site: left forearm; 04:45 Drug: Potassium PO Effervescent Tablet 50 mEq PO once; dissolve in 4 ounces of water or al5 juice Route: PO; 05:35 Follow up: Response: No adverse reaction kd3 07:04 Drug: Acetaminophen PO 1000 mg PO once Route: PO; al5 Disposition Summary: 08/25/24 06:31 Hospitalization Ordered Notes: Hospitalization Status: Inpatient Admission sp4 Provider: Shirley Saleem Location: Telemetry/[facility] (Inpatient) sp4 Condition: Stable sp4 Problem: new sp4 Symptoms: have improved sp4 Bed/Room Type: Standard sp4 Room Assignment: 206(08/25/24 07:44) sp Diagnosis - Pyelonephritis acute sp4 - Severe sepsis without septic shock sp4 - Moderate dehydration, diabetes mellitus type II with acute hyperglycemia sp4 Forms: - Medication Reconciliation Form sp4 - SBAR form sp4 - Leadership Thank You Letter sp4 Signatures: Dispatcher [employer] EDMS Danielle Toribio Lee, FNP-C [employer]-Cla1 Martha Ramirez RN RN lg3 Duong Vaughn MD MD sp4 Annie Almanza RN RN al5 Mikael, Kourtney RN kd3 Corrections: (The following items were deleted from the chart) 03:01 03:00 PSHx: Total abdominal hysterectomy; al5 al5 03:03 03:03 COVID-19 Ag + Flu A+B Ag+I.LAB.BRZ ordered. EDMS EDMS 03:03 03:03 CBC+H.LAB.BRZ ordered. EDMS EDMS 03:03 03:03 COMPREHENSIVE METABOLIC PANEL+C.LAB.BRZ ordered. EDMS EDMS 03:03 03:03 LIPASE+C.LAB.BRZ ordered. EDMS EDMS 03:03 03:03 Urinalysis+U.LAB.BRZ ordered. EDMS EDMS 03:14 03:14 BLOOD CULTURE*+BA.LAB.BRZ ordered. EDMS EDMS 03:15 03:15 C-REACTIVE PROTEIN+C.LAB.BRZ ordered. EDMS EDMS 03:15 03:15 THYROID STIMULAT HORMONE+C.LAB.BRZ ordered. EDMS EDMS 03:15 03:15 T4 FREE+C.LAB.BRZ ordered. EDMS EDMS 07:44 06:31 sp4 sp
--- NOTE | 2024-08-25 06:35 | RAD REPORT ---
EXAM: CT Chest, Abdomen and Pelvis With Intravenous Contrast CLINICAL HISTORY: The patient is 54 years old and is Female; CHEST PAIN TECHNIQUE: Axial computed tomography images of the chest, abdomen and pelvis with intravenous contr ast. Sagittal and coronal reformatted images were created and reviewed. This CT exam was performed using one or more of the following dose reduction techniques: automated exposure control, adjustment of the mA and/or kV according to patient size, and/or use of iterative reconstruction technique. COMPARISON: No relevant prior studies available. FINDINGS: CHEST: Lungs: Unremarkable. No mass. No consolidation. Pleural space: Unremarkable. No significant effusion. No pneumothorax. Heart: Unremarkable. No cardiomegaly. No significant pericardial effusion. No significant c oronary artery calcifications. ABDOMEN: Liver: Hepatosplenomegaly. Gallbladder and bile ducts: Unremarkable. No calcified stones. No ductal dilation. Pancreas: Unremarkable. No ductal dilation. No mass. Spleen: See above. Adrenals: Unremarkable. No mass. Kidneys and ureters: Mild left hydroureter and perinephric/periureteral stranding. No solid mass. Stomach and bowel: Scattered colonic diverticula. No obstruction. No mucosal thickening. PELVIS: Appendix: No findings to suggest acute appendicitis. Bladder: Unremarkable. No mass. Reproductive: Unremarkable as visualized. CHEST, ABDOMEN and PELVIS: Intraperitoneal space: Unremarkable. No significant fluid collection. No free air. Bones/joints: Unremarkable. No acute fracture. No dislocation. Soft tissues: Unremarkable. Vasculature: Unremarkable. No aortic aneurysm. Lymph nodes: Unremarkable. No enlarged lymph nodes. IMPRESSION: 1. Mild left hydroureter and perinephric/periureteral stranding. Findings can be seen with infect ion and recent stone passage. 2. Additional non-emergent findings as above. Electronically signed by: Xander Dietrich MD 08/25/2024 06:05 AM CDT 8 Due to temporary technical issues with the PACS/[employer] reporting system, reports are being charissa d by the in-house radiologist without review as a courtesy to ensure prompt reporting the interpreting radiologist is fully responsible for the content of the report. Transcribed Date/Time: 08/25/2024 6:34 AM
[2024-08-25] MEDS: INSULIN REGULAR (HUMAN) 100 UNIT/ML SQ SCH (07:30)
[2024-08-25 08:23] VITALS: BMI 32.1
[2024-08-25] MEDS ORDERED: INSULIN REGULAR (HUMAN) 100 UNIT/ML ONE (08:27)
--- NOTE | 2024-08-25 09:11 | P.HP ---
Certification for Inpatient Patient admitted to: Inpatient With expected LOS: >2 Midnights Patient will require the following post-hospital care: None Practitioner: I am a practitioner with admitting privileges, knowledge of patient current condition, hospital course, and medical plan of care. Services: Services provided to patient in accordance with Admission requirements found in Title 42 Section 412.3 of the Code of Federal Regulations <Javier Serrato - Last Filed: 08/25/24 09:07> Patient History Date of Service: 08/25/24 Reason for admission: Pyelonephritis History of Present Illness: 54-year-old female with history of diabetes mellitus type 9lnf-vvayrkv-vwafxkazx, hypertension presents to the emergency department chief complaint of left flank pain. She reports her symptoms been ongoing over the course of the last 2 to 3 days. She was evaluated in the emergency department her labs are significant for leukocytosis with a white blood cell count of 12.3 glucose of 340 lactic acid initially of 2.7 down to 1.[address] of the chest abdomen pelvis was performed which revealed mild left hydroureter and perinephric/periureteral stranding. This is likely secondary to pyelonephritis - Past Medical/Surgical History Has patient received pneumonia vaccine in the past: Yes -: Diabetes mellitus type 2 -: Hypertension -: Hysterectomy -: Psychosocial/ Personal History: Lives at home with family - Social History Place of Residence: Home <Javier Serrato - Last Filed: 08/25/24 09:07> Date of Service: 08/25/24 <Shirley Saleem - Last Filed: 08/27/24 03:36> Allergies No Known Allergies Allergy (Unverified 08/25/24 07:19) Review of Systems 10-point ROS is otherwise unremarkable Gastrointestinal: Abdominal Pain (Left flank pain) <Javier Serrato - Last Filed: 08/25/24 09:07> Physical Examination - Physical Exam General: Alert, In no apparent distress, Oriented x3 HEENT: Atraumatic, PERRLA, EOMI Neck: Supple, 2+ carotid pulse no bruit, No LAD Respiratory: Clear to auscultation bilaterally, Normal air movement Cardiovascular: Regular rate/rhythm, Normal S1 S2 Gastrointestinal: Normal bowel sounds, Tenderness (Mild left flank tenderness) Musculoskeletal: No tenderness Integumentary: No rashes Neurological: Normal gait, Normal speech, Normal strength at 5/5 x4 extr, Normal affect - Studies Laboratory Data (last 24 hrs) 08/25/24 08/25/24 08/25/24 03:15 03:15 03:15 WBC 12.30 H Hgb 13.0 Hct 37.3 Plt Count 229 PT 13.8 H INR 1.22 Sodium 134 L Potassium 3.0 L BUN 13 Creatinine 0.82 Glucose 340 H Total Bilirubin 1.1 H AST < 10 L ALT 35 Alkaline Phosphatase 96 Lipase 16 <Javier Serrato - Last Filed: 08/25/24 09:07> - Studies Microbiology Data (last 24 hrs): 08/25/24 03:15 Blood - Blood Blood Culture Gram Stain - Final 08/25/24 03:15 Blood - Blood Gram Stain - Final <Shirley Saleem - Last Filed: 08/27/24 03:36> Assessment and Plan - Plan Assessment: Severe sepsis secondary to pyelonephritis Diabetes mellitus type 2atm-dmzoljc-ecxwhsjfb with hyperglycemia Hypertension Plan: Severe sepsis secondary to pyelonephritis Blood and urine cultures pending Empiric antibiotics with Rocephin Lactate downtrending Diabetes mellitus type 6jhx-btzganf-idvsttsqh with hyperglycemia ACHS Accu-Chek, sliding scale insulin Hypertension Continue home medications when verified DVT PPX:lovenox Code status:Full Discharge Plan: Home Plan to discharge in: 48 Hours - Advance Directives Does patient have a Living Will: No Does patient have a Durable POA for Healthcare: No - Code Status/Comfort Care Code Status Assessed: Yes (Full code) Critical Care: No Time Spent Managing Pts Care (In Minutes): 65 <Javier Serrato - Last Filed: 08/25/24 09:07> Date of Service: 08/25/24 Patient was seen and examined. Events of the last 24 hours have been noted. Spoke with with HUNTER regarding patient's clinical picture after evaluating and examining the patient independently. I performed a substantial part of the MDM during this patient's care today. I personally made or approved the documented management plan and acknowledge its risk of complications. I agree with the findings and documentation provided in the HUNTER's notes. <Shirley Saleem - Last Filed: 08/27/24 03:36>
[2024-08-25] MEDS: NA CHLORIDE 0.9% 1,000 ML IV SCH (09:57)
[2024-08-25] MEDS: ACETAMINOPHEN 325 MG TABLET PO PRN (14:55)
[2024-08-25] MEDS: KETOROLAC 30 MG/ML INJ IV ONE (16:41)
[2024-08-25] MEDS: NA CHLORIDE 0.9% 500 ML IV ONE (16:41)
[2024-08-26] MEDS: IBUPROFEN 400 MG TAB PO SCH (00:40)
[2024-08-26] MEDS: CEFTRIAXONE 1,000 MG in NA CHLORIDE 0.9% 50 ML IVPB SCH (03:28)
[2024-08-26 05:38] LABS: Absolute Eosinophils 0.1 K/uL (0-0.5); Absolute Lymphocytes (CBC) 0.9 K/uL (0.7-4.9); Absolute Monocytes 0.5 K/uL (0.1-1.3); Absolute Neutrophil 5.1 K/uL (1.8-8.0); Basophils % 0.7 % (0-1.3); Eosinophils % 0.8 % (0-4.4); Hematocrit 34.6 % (36.0-45.0); Hemoglobin 11.9 g/dL (12.0-15.0); Lymphocytes % 14.1 % (15.3-44.8); MCH 30.2 pg (27.0-35.0); MCHC 34.5 g/dL (32.0-36.0); MCV 87.7 fL (80-100); MPV 8.3 fL (7.6-11.3); Neutrophils % 76.4 % (41.7-73.7); Nucleated Red Blood Cells % 0.1 % (0-0); Platelets 171 thou/uL (152-406); RBC Red Blood Cell Count 3.94 M/uL (3.86-4.86); Red Cell Distribution Width 13.2 % (12.1-15.2)
[2024-08-26 05:52] LABS: Albumin 2.9 g/dL (3.4-5.0); Albumin/Globulin Ratio 0.9 (1.1-1.8); Anion Gap 8.2 mEq/L (5.0-15.0); Bilirubin Total 0.8 mg/dL (0.2-1.0); Globulin 3.2 g/dL (2.3-3.5); Potassium 3.2 mEq/L (3.5-5.1); Protein, Total 6.1 g/dL (6.4-8.2)
[2024-08-26] MEDS: POTASSIUM 25 MEQ EFFERV TAB PO ONE (08:02)
[2024-08-26] MEDS: CEFEPIME 2 GM in NA CHLORIDE 0.9% 100 ML IV SCH (08:02)
[2024-08-26] MEDS: INSULIN REGULAR (HUMAN) 100 UNIT/ML SQ SCH (08:03)
[2024-08-26] MEDS: ENOXAPARIN 40 MG/0.4 ML SQ SCH (08:03)
[2024-08-26] MEDS: HYDROCODONE/APAP 5/325 MG TAB PO PRN (08:13)
--- NOTE | 2024-08-26 11:12 | P.PN ---
Date of Service: 08/26/24 Subjective: Still running fevers Feels a little better than yesterday ROS: 10 point ROS as noted above, otherwise negative Physical exam GEN: Alert, oriented, NAD HEENT: Normal conjunctiva, sclera anicteric CV: Regular rate and rhythm, no edema Pulm: Nonlabored respirations on room air ABD: Soft, nontender, nondistended, mild CVA tenderness MSK: No joint tenderness Integumentary: No rashes Neuro: Normal speech, normal affect Vitals reviewed Assessment: Severe sepsis secondary to pyelonephritis Diabetes mellitus type 7ncl-wqamvww-nvpotipfp with hyperglycemia Hypertension Plan: Severe sepsis secondary to pyelonephritis Gram-negative bacteremia Blood cultures preliminarily positive all 4 bottles gram-negative rods Antibiotic switched to cefepime Monitor CBC/fever trend ID consultation Diabetes mellitus type 6ppj-cnshbuk-eeoxwdlof with hyperglycemia ACHS Accu-Chek, sliding scale insulin Hypertension Continue home medications when verified DVT PPX-lovenox 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 Events of the last 24 hours have been noted. Spoke with with HUNTER regarding patient's clinical picture after evaluating and examining the patient independently. I performed a substantial part of the MDM during this patient's care today. I personally made or approved the documented management plan and acknowledge its risk of complications. I agree with the findings and documentation provided in the HUNTER's notes. Patient with bacteremia with Gram-negative rods. Repeat blood cultures. Await for culture results. Continue with antipyretics. <Shirley Saleem - Last Filed: 08/27/24 03:37>
[2024-08-26] MEDS: KETOROLAC 30 MG/ML INJ IV ONE (17:03)
[2024-08-27] MEDS: PANTOPRAZOLE 40MG TABLET PO SCH (06:46)
[2024-08-27] MEDS: ONDANSETRON 4 MG/2 ML VIAL IV PRN (06:50)
[2024-08-27 07:15] LABS: Absolute Lymphocytes (CBC) 0.6 K/uL (0.7-4.9); Absolute Monocytes 0.3 K/uL (0.1-1.3); Absolute Neutrophil 2.3 K/uL (1.8-8.0); Basophils % 0.3 % (0-1.3); Eosinophils % 0.4 % (0-4.4); Hematocrit 31.7 % (36.0-45.0); Lymphocytes % 17.7 % (15.3-44.8); MCH 30.1 pg (27.0-35.0); MCHC 34.6 g/dL (32.0-36.0); MCV 87.1 fL (80-100); Monocytes % 9.4 % (3.3-12.3); Neutrophils % 72.2 % (41.7-73.7); Nucleated Red Blood Cells % 0.2 % (0-0); Platelets 161 thou/uL (152-406); RBC Red Blood Cell Count 3.64 M/uL (3.86-4.86); Red Cell Distribution Width 12.8 % (12.1-15.2)
[2024-08-27 07:39] LABS: Albumin 2.7 g/dL (3.4-5.0); Albumin/Globulin Ratio 0.8 (1.1-1.8); Anion Gap 10.6 mEq/L (5.0-15.0); Bilirubin Total 0.6 mg/dL (0.2-1.0); Globulin 3.4 g/dL (2.3-3.5); Potassium 3.6 mEq/L (3.5-5.1); Protein, Total 6.1 g/dL (6.4-8.2)
[2024-08-27] MEDS: DIPHENHYDRAMINE 50 MG/ML VIAL IV ONE (08:30)
[2024-08-27] MEDS: KETOROLAC 30 MG/ML INJ IV ONE (08:33)
--- NOTE | 2024-08-27 08:36 | P.PN ---
Date of Service: 08/27/24 Subjective: Fever curve improving Complains of headache this morning No other acute events overnight ROS: 10 point ROS as noted above, otherwise negative Physical exam GEN: Alert, oriented, NAD HEENT: Normal conjunctiva, sclera anicteric CV: Regular rate and rhythm, no edema Pulm: Nonlabored respirations on room air ABD: Soft, nontender, nondistended, mild CVA tenderness MSK: No joint tenderness Integumentary: No rashes Neuro: Normal speech, normal affect Vitals reviewed Assessment: Severe sepsis secondary to pyelonephritis Diabetes mellitus type 9yxf-ekerwbo-qkueylzby with hyperglycemia Hypertension Plan: Severe sepsis secondary to pyelonephritis Gram-negative bacteremia 08/25 blood cultures preliminarily positive all 4 bottles gram-negative rods Antibiotic switched to cefepime 08/26 1 repeat blood cultures obtained-pending Urine culture also pending Monitor CBC/fever trend-improving ID consultation Diabetes mellitus type 5iog-xrjwgoj-bmllikenu with hyperglycemia ACHS Accu-Chek, sliding scale insulin Hypertension Continue home medications when verified DVT PPX-lovenox 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 Events of the last 24 hours have been noted. Case discussed with HUNTER. I performed a substantial part of the MDM during this patient's care today. I personally made or approved the documented management plan and acknowledge its risk of complications. I agree with the findings and documentation provided in the HUNTER's notes Patient has ESBL E. coli and patient started on Merrem. PICC line will need to be in place and outpatient IV antibiotics. <Shirley Saleem - Last Filed: 08/28/24 03:53>
[2024-08-27] MEDS: METOCLOPRAMIDE 10 MG/2mL INJ IV SCH (12:16)
[2024-08-27] MEDS: Meropenem 1,000 MG in NA CHLORIDE 0.9% 100 ML IV SCH (15:40)
--- NOTE | 2024-08-27 16:03 | P.CNS ---
Date of Consult: 08/27/24 reason for consultation: pyelonephritis and bacteremia HPI: pt present to ER for left side abdominal pain and fever of 103. report sym ptoms has been ongoing for 2-3 days.PMH DM2 and HTN. on admission pt had leukocytosis 12.[address] chest abdomen pelvis shows Mild left hydroureter and perinephric/periureteral stranding. ROS: 10 point ROS review and negative unless stated in HPI. Pt report feeling better but still is having fever OBJECTIVE Temp Pulse Resp BP Pulse Ox 100.3 F 79 20 162/83 H 93 08/27/24 16:00 08/27/24 16:00 08/27/24 19:44 08/27/24 16:00 08/27/24 19:44 CT of the chest abdomen pelvis was performed which revealed mild left hydroureter and perinephric/periureteral stranding. This is likely secondary to pyelonephritis blood and urine culture pending PE GEN: Alert, oriented, NAD. Not in distress HEENT: Normal conjunctiva, sclera anicteric CV: RRR Pulm: CTA ABD: Soft, nontender, nondistended, No CVA tenderness MSK: No joint tenderness Integumentary: No rashes Neuro: Normal speech, normal affect. alert and oriented x 3. respond appropriately to questions Laboratory Results labs: wbc 3.2, Hgb 11, platelet 161, BUN 8. CR .54, albumin 2.5 assessment and planning severe sepsis secondary to pyelonephritis 08/25 gram negative bacteremia urine and blood culture pending montior cbc and fever trend continue meropenem I recommend to dc cefepime leukopenia anemia of chronic disease monitor H&H herpetic lesion continue valtrex DM2 achs ACCUCHECK AND SLIDING SCALE INSULIN HTN defer to primary moderate protein calorie malnourishment consider occup therapist consult case discussed and round with DR Sims
[2024-08-27] MEDS: POTASSIUM CL SA 10 MEQ TAB PO ONE (21:03)
[2024-08-27] MEDS: LOSARTAN/HCTZ 50-12.5 PO SCH (21:56)
[2024-08-28 04:51] LABS: Absolute Lymphocytes (CBC) 0.8 K/uL (0.7-4.9); Absolute Monocytes 0.4 K/uL (0.1-1.3); Absolute Neutrophil 1.6 K/uL (1.8-8.0); Basophils % 0.7 % (0-1.3); Eosinophils % 1.7 % (0-4.4); Hematocrit 31.3 % (36.0-45.0); Hemoglobin 10.8 g/dL (12.0-15.0); Lymphocytes % 27.3 % (15.3-44.8); MCH 29.9 pg (27.0-35.0); MCHC 34.4 g/dL (32.0-36.0); MCV 86.9 fL (80-100); MPV 8.5 fL (7.6-11.3); Monocytes % 12.7 % (3.3-12.3); Neutrophils % 57.6 % (41.7-73.7); Nucleated Red Blood Cells % 0.1 % (0-0); Platelets 165 thou/uL (152-406); Red Cell Distribution Width 12.7 % (12.1-15.2)
[2024-08-28 05:09] LABS: Albumin 2.5 g/dL (3.4-5.0); Albumin/Globulin Ratio 0.7 (1.1-1.8); Anion Gap 9.4 mEq/L (5.0-15.0); Bilirubin Total 0.4 mg/dL (0.2-1.0); Globulin 3.5 g/dL (2.3-3.5); Potassium 3.4 mEq/L (3.5-5.1)
[2024-08-28 05:37] LABS: Band Neutrophils 25 % (0-1); Differential Total Cells Count 100; Eosinophils 2 % (0-3); Lymphocytes 22 % (15-42); Monocytes 4 % (0-10); Reactive Lymphocytes 1 %; Segmented Neutrophils 45 % (40-80)
[2024-08-28 05:38] LABS: Blood Morphology Comment NOT SEEN (NOT SEEN); Platelet Estimate ADEQ
[2024-08-28] MEDS: POTASSIUM CL SA 10 MEQ TAB PO ONE (05:51)
[2024-08-28] MEDS: VALACYCLOVIR 500 MG TAB PO SCH (09:00)
[2024-08-28] MEDS: Mupirocin NASAL 2 APPL/1 GM TUBE NAS SCH (09:00)
[2024-08-28] MEDS: INSULIN GLARGINE 100 UNIT/ML SQ SCH (09:00)
[2024-08-28] MEDS: HYDROMORPHONE HCL 0.5 MG/0.5 ML INJ IV ONE (09:42)
--- NOTE | 2024-08-28 10:32 | RAD REPORT ---
EXAM: CT Head Brain Wo Cont HISTORY: Severe headache COMPARISON: None TECHNIQUE: Multiple contiguous axial images were obtained for a CT of the brain without contrast. Sag ittal and coronal reformats were performed. One or more of the following dose reduction techniques were used: Automated exposure control, adjus tment of the mA and kV according to patient size, and iterative reconstruction. Unless otherwise specified, incidental findings do not require dedicated imaging follow-up. FINDINGS: No evidence of hydrocephalus, intracranial hemorrhage, or extra-axial fluid collection. The brain is normal in morphology. The calvarium is intact. The visualized paranasal sinuses and mastoid air cells are essentially clear . IMPRESSION: No evidence of acute intracranial abnormality.
--- NOTE | 2024-08-28 11:22 | RAD REPORT ---
EXAMINATION: US RENAL CLINICAL INDICATION: Abdominal pain TECHNIQUE: Real-time ultrasonography of the kidneys performed. COMPARISON: No prior exam. FINDINGS: Right kidney measures 11 cm with a normal echotexture. No hydronephrosis Left kidney measures 12 cm with normal echotexture. Mild prominence of an extrarenal pelvis. No gross abnormality bladder. IMPRESSION: Mild prominence of a left extrarenal pelvis without significant change from August 25, 2024. This coul d be physiologic or secondary to inflammation or recently passed stone.
--- NOTE | 2024-08-28 12:54 | RAD REPORT ---
EXAMINATION: ONE VIEW CHEST XR CLINICAL INDICATION: PICC Line placement TECHNIQUE: Frontal chest projection is submitted. Examination is limited by patient positioning and t echnique. COMPARISON: No prior exam. FINDINGS: Right-sided PICC and has its tip in SVC. The lungs are grossly clear. The heart is upper limit of nor mal in size. No displaced fractures identified.
--- NOTE | 2024-08-28 13:45 | P.PN ---
Date of Service: 08/28/24 Subjective: Developed oral cold sores Still complains of headache Fever curve improving ROS: 10 point ROS as noted above, otherwise negative Physical exam GEN: Alert, oriented, NAD HEENT: Normal conjunctiva, sclera anicteric CV: Regular rate and rhythm, no edema Pulm: Nonlabored respirations on room air ABD: Soft, nontender, nondistended, mild CVA tenderness MSK: No joint tenderness Integumentary: No rashes Neuro: Normal speech, normal affect Vitals reviewed Assessment: Severe sepsis secondary to pyelonephritis Headache Cold sores Diabetes mellitus type 7eis-asqobmj-oexuckyhe with hyperglycemia Hypertension Plan: Severe sepsis secondary to pyelonephritis Gram-negative bacteremia 08/25 blood cultures 4 out of 4 positive for E. coli Urine culture positive for E. 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
--- NOTE | 2024-08-28 13:47 | P.PN ---
This is an attestation to [employer] note. Subjective: No chest pain or shortness of breath. No nausea or vomiting. No abdominal pain. No obvious bleeding. Looks comfortable in the bed. Objective: General appearance: Alert and comfortable CVS: Normal S1 and S2 Lungs: Clear to auscultation bilaterally Abdomen: Soft, bowel sounds present, no tenderness Extremities: No lower extremity edema 54-year-old patient with pyelonephritis and E. coli bacteremia, blood cultures are not ESBL but urine culture is ESBL, continue meropenem for now, furthe antibiotic management as per ID team. Hepatosplenomegaly on CT scan, and mild transaminitis, need follow-up with PCP. Mild left-sided hydronephrosis on CT scan, renal ultrasound showing same findings, probably related inflammation, need to follow-up with PCP. CT head negative. Anemia and neutropenia, monitor closely for now. Plan discussed with patient and family at bedside, discussed with case management team, patient is uninsured, it may be difficult for home antibiotics set up.
[2024-08-28] MEDS: KCL 20 MEQ/100 mL IVPB 20 MEQ/100 ML BAG IV SCH (14:00)
[2024-08-28] MEDS: AMLODIPINE 5 MG TAB PO SCH (14:52)
[2024-08-28] MEDS: HYDRALAZINE HCL 20 MG/ML VIAL IV PRN (17:45)
--- NOTE | 2024-08-28 20:43 | PN ---
Subjective: Patient lying in bed. No new acute event. Chart reviewed. Denies any chest pain, abdo luis pain, constipation, or diarrhea. Objective: Vital Signs: Temperature 98.9, pulse 72, respirations 16, blood pressure 177/87. Lungs: Basal crackles. Heart: S1, S2. Regular. Abdomen: Soft, nontender. Bowel sounds present. Extremities: No edema. Laboratory Data: WBC 2.8, hemoglobin 10, platelets 165. BUN of 5, creatinine 0.4, albumin level is 2.5. The patient currently being treated with meropenem and Valtrex. Assessment And Plan: Urosepsis secondary to pyelonephritis secondary to E coli ESBL. The patient co ntinued to have low-grade fevers, which is improved from previous temperature readings, leukopenia. Anemia of chronic disease. Moderate protein-calorie malnourishment. Diabetes mellitus. Herpetic lesions. Bacteremia secondary to E coli. Continue current treatment for 2 weeks. Monitor signs of infection with WBC and fever trends. We will follow the patient as needed. NF/MODL Voice ID: [id number] Report ID: [id number]
[2024-08-28 20:59] VITALS: O2SAT 97
[2024-08-29 05:11] LABS: Absolute Eosinophils 0.1 K/uL (0-0.5); Absolute Lymphocytes (CBC) 1.3 K/uL (0.7-4.9); Absolute Monocytes 0.5 K/uL (0.1-1.3); Absolute Neutrophil 1.7 K/uL (1.8-8.0); Basophils % 0.6 % (0-1.3); Eosinophils % 2.6 % (0-4.4); Hematocrit 31.9 % (36.0-45.0); Hemoglobin 11.2 g/dL (12.0-15.0); Lymphocytes % 36.5 % (15.3-44.8); MCH 30.2 pg (27.0-35.0); MCHC 35.3 g/dL (32.0-36.0); MCV 85.6 fL (80-100); MPV 8.1 fL (7.6-11.3); Monocytes % 13.8 % (3.3-12.3); Neutrophils % 46.5 % (41.7-73.7); Nucleated Red Blood Cells % 0.2 % (0-0); Platelets 223 thou/uL (152-406); RBC Red Blood Cell Count 3.72 M/uL (3.86-4.86); Red Cell Distribution Width 12.9 % (12.1-15.2)
[2024-08-29 05:28] LABS: Albumin 2.6 g/dL (3.4-5.0); Albumin/Globulin Ratio 0.7 (1.1-1.8); Anion Gap 8.5 mEq/L (5.0-15.0); Bilirubin Total 0.4 mg/dL (0.2-1.0); Globulin 3.6 g/dL (2.3-3.5); Potassium 3.5 mEq/L (3.5-5.1); Protein, Total 6.2 g/dL (6.4-8.2)
[2024-08-29] MEDS ORDERED: IBUPROFEN 400 MG TAB PO PRN (07:52)
[2024-08-29] MEDS: PANTOPRAZOLE 40MG TABLET PO SCH (08:37)
[2024-08-29] MEDS: INSULIN REGULAR (HUMAN) 100 UNIT/ML SQ SCH (08:37)
[2024-08-29] MEDS: POTASSIUM CL SA 10 MEQ TAB PO ONE (08:38)
--- NOTE | 2024-08-29 09:08 | P.PN ---
Date of Service: 08/29/24 Subjective: Cold sores resolved Symptoms are improving No acute events overnight Intermittent headache still ROS: 10 point ROS as noted above, otherwise negative Physical exam GEN: Alert, oriented, NAD HEENT: Normal conjunctiva, sclera anicteric CV: Regular rate and rhythm, no edema Pulm: Nonlabored respirations on room air ABD: Soft, nontender, nondistended, no CVA tenderness MSK: No joint tenderness Integumentary: No rashes Neuro: Normal speech, normal affect Vitals reviewed Assessment: Severe sepsis secondary to pyelonephritis Headache Cold sores Diabetes mellitus type 8dzp-oxqnjlx-dgfcqqpga with hyperglycemia Hypertension Plan: Severe sepsis secondary to pyelonephritis Gram-negative bacteremia 08/25 blood cultures 4 out of 4 positive for E. coli Urine culture positive for E. coli ESBL-switched to meropenem 08/27 08/27 repeat blood cultures obtained no growth in 24 hours Monitor CBC/fever trend-improving ID recommends 2 weeks of IV antibioticsmeropenem, PICC line is in place and date is 09/11/2024 [address] line is in place on site services specialist consulted to assist with arrangement of outpatient antibiotics Headache Persistent severe headache-CT head negative, some improvement now with meds Cold sores Valtrex 2gm BID x1 day-resolved Diabetes mellitus type 6cbx-rnananz-vruifhqud with hyperglycemia ACHS Accu-Chek, sliding scale insulin Hypertension Continue home medications when verified DVT PPX-lovenox 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
[2024-08-29] MEDS: DOCUSATE NA 100 MG CAP PO ONE (09:29)
[2024-08-29] MEDS: KETOROLAC 30 MG/ML INJ IV ONE (09:29)
--- NOTE | 2024-08-29 12:53 | EKG ---
Test Date: 2024-08-25 Test Time: 03:27:16 Deck Hand: MM MEASUREMENT RESULTS: Intervals: Rate: 124 AR: 180 QRSD: 76 QT: 260 QTc: 373 [place]: P: 27 AR: 180 QRS: -7 T: 112 INTERPRETIVE STATEMENTS: Sinus tachycardia Cannot rule out Anterior infarct, age undetermined Abnormal ECG No previous ECG available for comparison Electronically Signed On 08-29-24 12:42:47 CDT by Luis Robles
--- NOTE | 2024-08-29 15:27 | P.DS ---
Admission Date: 08/25/24 Discharge Date: 08/29/24 Disposition: ROUTINE DISCHARGE Discharge Condition: GOOD Reason for Admission: Pyelonephritis Brief History of Present Illness: 54-year-old female with history of diabetes mellitus type 6yrp-gcryjep-pqobbioxj, hypertension presents to the emergency department chief complaint of left flank pain. She reports her symptoms been ongoing over the course of the last 2 to 3 days. She was evaluated in the emergency department her labs are significant for leukocytosis with a white blood cell count of 12.3 glucose of 340 lactic acid initially of 2.7 down to 1.[address] of the chest abdomen pelvis was performed which revealed mild left hydroureter and perinephric/periureteral stranding. This is likely secondary to pyelonephritis Hospital Course: Assessment: Severe sepsis secondary to pyelonephritis Headache Cold sores Diabetes mellitus type 9lij-nvrveej-eerapunpk with hyperglycemia Hypertension Patient was admitted to the hospital for pyelonephritis. She was found to be bacteremic with 4 out of 4 blood culture bottles positive for E. coli. Her urine culture returned with E. coli ESBL. She was switched to IV meropenem and will need a total of 2 weeks of IV meropenem 3 times daily. PICC line has been inserted and antibiotics have been arranged. Blood cultures were obtained and have shown no growth, patient clinically has been improving, white blood cell count is within normal limits and she has not had fever for over 24 hours. Her hospitalization was complicated with an episode of cold sores which were resolved with valacyclovir. She also had headaches during hospitalization, CT head was negative for acute findings and the headaches have since resolved. She was noted that her blood pressure and blood sugar were high during her hospitalization we will add Norvasc 10 mg daily and glipizide XL 5 mg daily to her current regimen. Recommend follow-up with primary care doctor in 1 week with repeat CBC and BMP. Her CT did note hepatosplenomegaly, this can be followed outpatient as well. Her antibiotics will be continued through 09/11/2024 Vital Signs/Physical Exam: Temp Pulse Resp BP Pulse Ox 98.5 F 83 20 170/89 H 97 08/29/24 12:00 08/29/24 12:00 08/29/24 12:00 08/29/24 12:00 08/29/24 12:00 General: Alert, In no apparent distress, Oriented x3 HEENT: Atraumatic Neck: Supple Respiratory: Clear to auscultation bilaterally, Normal air movement Cardiovascular: Regular rate/rhythm, Normal S1 S2 Gastrointestinal: Non-distended Musculoskeletal: No tenderness Integumentary: No rashes Neurological: Normal speech Laboratory Data at Discharge: WBC 3.60 thou/uL (4.3-10.9) L 08/29/24 04:52 Hgb 11.2 g/dL (12.0-15.0) L 08/29/24 04:52 Hct 31.9 % (36.0-45.0) L 08/29/24 04:52 Plt Count 223 thou/uL (152-406) D 08/29/24 04:52 PT 13.8 SECONDS (10-13.0) H 08/25/24 03:15 INR 1.22 08/25/24 03:15 Sodium 137 mEq/L (136-145) 08/29/24 04:52 Potassium 3.5 mEq/L (3.5-5.1) 08/29/24 04:52 BUN 7 mg/dL (7-18) 08/29/24 04:52 Creatinine 0.52 mg/dL (0.55-1.02) L 08/29/24 04:52 Glucose 212 mg/dL (74-106) H 08/29/24 04:52 Total Bilirubin 0.4 mg/dL (0.2-1.0) 08/29/24 04:52 AST 26 U/L (15-37) 08/29/24 04:52 ALT 66 U/L (13-56) H 08/29/24 04:52 Alkaline Phosphatase 137 U/L (45-117) H 08/29/24 04:52 Lipase 16 U/L (13-75) 08/25/24 03:15 Home Medications: Losartan/Hydrochlorothiazide [Losartan-Hctz 100-25 mg Tab] 1 tab PO DAILY 08/25/24 Metformin HCl 1,000 mg PO BID 08/25/24 Amlodipine [Norvasc*] 10 mg PO DAILY #30 tab 08/29/24 Glipizide [Glipizide Xl] 5 mg PO DAILY #30 tab 08/29/24 New Medications: Glipizide [Glipizide Xl] 5 mg PO DAILY #30 tab Amlodipine [Norvasc*] 10 mg PO DAILY #30 tab Physician Discharge Instructions: Patient was admitted to the hospital for pyelonephritis. She was found to be bacteremic with 4 out of 4 blood culture bottles positive for E. coli. Her urine culture returned with E. coli ESBL. She was switched to IV meropenem and will need a total of 2 weeks of IV meropenem 3 times daily. PICC line has been inserted and antibiotics have been arranged. Blood cultures were obtained and have shown no growth, patient clinically has been improving, white blood cell count is within normal limits and she has not had fever for over 24 hours. Her hospitalization was complicated with an episode of cold sores which were resolved with valacyclovir. She also had headaches during hospitalization, CT head was negative for acute findings and the headaches have since resolved. She was noted that her blood pressure and blood sugar were high during her hospitalization we will add Norvasc 10 mg daily and glipizide XL 5 mg daily to her current regimen. Recommend follow-up with primary care doctor in 1 week with repeat CBC and BMP. Her CT did note hepatosplenomegaly, this can be followed outpatient as well. Her antibiotics will be continued through 09/11/2024 Diet: ADA Activity: Ad [place] Followup: Alma Cooper NP [Primary Care Provider] - 1 Week Time spent managing pt's care (in minutes): 46
[2024-08-29 16:38] VITALS: BP 155/81; TEMP 99.1
[2024-08-29] MEDS ORDERED: AMLODIPINE 5 MG TAB PO SCH (21:00)
--- NOTE | 2024-08-29 22:43 | PN ---
Subjective: The patient lying in bed. No new acute event. Chart reviewed. Feels much better today. Objective: Vital Signs: Temperature 99, pulse 86, respirations 20, blood pressure 155/81. Lungs: Clear to auscultation. Heart: S1, S2. Regular. Abdomen: Soft. Bowel sounds present. Extremities: No edema. Laboratory Data: Shows WBC 3.6, hemoglobin 11.2, platelets are 223, BUN of 7, creatinine 0.5, albumin level 2.6. Medication: Include meropenem. Assessment And Plan: Urosepsis secondary to pyelonephritis, diabetes mellitus, hypertension. The patient continue empiric treatment. We will follow the patient as needed. NF/MODL Voice ID: [id number] Report ID: [id number] MTDD
== END 2024-08-29 18:49 | disposition home or self-care (01) | DRG 872 ==
LOC: ER 02:47 → ERHOLD 07:20 → 2ND 08:12
PROVIDERS: ADMIT Hospitalist; ATTEND Hospitalist
PROC: 02HV33Z Insertion of Infusion Device into Superior Vena Cava, Percutaneous Approach (ICD-10-PCS; principal; 2024-08-28)
DX: A41.51 Sepsis due to Escherichia coli [E. coli] (principal); N10 Acute pyelonephritis; Z16.12 Extended spectrum beta lactamase (ESBL) resistance; E44.0 Moderate protein-calorie malnutrition; R65.20 Severe sepsis without septic shock; E86.0 Dehydration; E11.65 Type 2 diabetes mellitus with hyperglycemia; I10 Essential (primary) hypertension; D70.9 Neutropenia, unspecified; D63.8 Anemia in other chronic diseases classified elsewhere; R74.01 Elevation of levels of liver transaminase levels; Z68.32 Body mass index [BMI] 32.0-32.9, adult; Z79.84 Long term (current) use of oral hypoglycemic drugs; Z79.899 Other long term (current) drug therapy; Z11.52 Encounter for screening for COVID-19
CPT/HCPCS: 36415; 36569; 70450; 71045; 71260; 74177; 76770; 80053; 81001; 82947; 83036; 83605; 83690; 84132; 84145; 84439; 84443; 84484; 85025; 85610; 86140; 87040; 87077; 87086; 87088; 87186; 87205; 87428; 93005; 99285; J0360; J0692; J0696; J1171; J1200; J1650; J1815; J2185; J2405; J2765; J3480; J7030; J7040; Q9967